=== PATIENT | female | born 1955 | race African-American/Black ===

== ENCOUNTER 2017-05-20 22:31 | Emergency (ER) | payer OTHER ==
[2017-05-20 23:12] VITALS: BP 164/93; PULSE 97; TEMP 98.2; BMI 38.0
[2017-05-20 23:35] LABS: URINE APPEARANCE CLOUDY; URINE BILIRUBIN NEGATIVE (NEGATIVE); URINE BLOOD 1+ (NEGATIVE); URINE COLOR YELLOW; URINE GLUCOSE (UA) NEGATIVE (NEGATIVE); URINE KETONE NEGATIVE (NEGATIVE); URINE NITRITE NEGATIVE (NEGATIVE); URINE UROBILINOGEN NEGATIVE mg/dL (0.2-1.0)
[2017-05-20 23:39] LABS: URINE LEUK ESTERASE 3+ (NEGATIVE); URINE PROTEIN 1+ (NEGATIVE)
[2017-05-20 23:40] LABS: EPI CELLS RARE /HPF (FEW); URINE BACTERIA RARE /hpf (NONE SEEN); URINE MUCUS FEW
--- NOTE | 2017-05-21 00:02 | PDOC ---
History of Present Illness - General Chief Complaint: Urinary Problem Stated Complaint: BURN Time Seen by Provider: 05/20/17 23:59 History Source: Patient Exam Limitations: No Limitations - History of Present Illness Travel History: No Initial Comments: 05/21/17 00:06 Best Contact: Pmhx: N/A Pshx:C sections x2 (27 and 23years ago) Allergies: NKDA 62-year-old female presents to the emergency department complaining of burning upon urination, dysuria, hesitancy, increased frequency and urgency since last evening without fever, chills, nausea/vomiting, abdominal discomfort, flank pains. Patient states she's had previous UTIs which feels the same. Past History - Past Medical History Allergies/Adverse Reactions: Allergies Allergy/AdvReac Type Severity Reaction Status Date / Time No Known Allergies Allergy Verified 05/20/17 23:09 Home Medications: Ambulatory Orders Atenolol [Tenormin -] 50 mg PO DAILY 05/20/17 Furosemide 20 mg PO ASDIR 05/20/17 Sulfamethoxazole/Trimethoprim [Bactrim Ds -] 1 tab PO BID #14 tablet 05/21/17 COPD: No HTN: Yes Hypercholesterolemia: Yes - Surgical History GI Surgery: Yes (Lap band) - Suicide/Smoking/Psychosocial Hx Smoking History: Never smoked Have you smoked in the past 12 months: No Information on smoking cessation initiated: No Hx Alcohol Use: No Drug/Substance Use Hx: No Substance Use Type: None Review of Systems - Review of Systems Able to Perform ROS?: Yes Comments:: 05/21/17 00:02 CONSTITUTIONAL: Absent: fever, chills, diaphoresis, generalized weakness, malaise, loss of appetite HEENT: Absent: rhinorrhea, nasal congestion, throat pain, throat swelling, difficulty swallowing, mouth swelling, ear pain, eye pain, visual Changes CARDIOVASCULAR: Absent: chest pain, loss of consciousness, palpitations, irregular heart rate, peripheral edema RESPIRATORY: Absent: cough, shortness of breath, dyspnea with exertion, orthopnea, wheezing, stridor, hemoptysis GASTROINTESTINAL: Absent: abdominal pain, abdominal distension, nausea, vomiting, diarrhea, constipation, melena, hematochezia GENITOURINARY: +dysuria, frequency, urgency, hesitancy Absent: flank pain, genital pain MUSCULOSKELETAL: Absent: myalgia, arthralgia, joint swelling SKIN: Absent: rash, itching, pallor HEMATOLOGIC/IMMUNOLOGIC: Absent: easy bleeding, easy bruising, lymphadenopathy, frequent infections Is the patient limited Malay proficient: No *Physical Exam - Vital Signs Last Vital Signs Temp Pulse Resp BP Pulse Ox 98.2 F 97 H 20 164/93 97 05/20/17 23:10 05/20/17 23:10 05/20/17 23:10 05/20/17 23:10 05/20/17 23:10 - Physical Exam Comments: 05/21/17 00:02 GENERAL: Well developed, well nourished. Awake and alert. No acute distress. HEENT: Normocephalic, atraumatic. PERRLA, EOMI. No conjunctival pallor. Sclera are non- icteric. Moist mucous membranes. Oropharynx is clear. NECK: Supple. Full ROM. No JVD. Carotid pulses 2+ and symmetric, without bruits. No thyromegaly. No lymphadenopathy. CARDIOVASCULAR: Regular rate and rhythm. No murmurs, rubs, or gallops. Distal pulses are 2+ and symmetric. PULMONARY: No evidence of respiratory distress. Lungs clear to auscultation bilaterally. No wheezing, rales or rhonchi. ABDOMINAL: Soft. Non-tender. Non-distended. No rebound or guarding. No organomegaly. Normoactive bowel sounds. MUSCULOSKELETAL Normal range of motion at all joints. No bony deformities or tenderness. No CVA tenderness. EXTREMITIES: No cyanosis. No clubbing. No edema. No calf tenderness. SKIN: Warm and dry. Normal capillary refill. No rashes. No jaundice. NEUROLOGICAL: Alert, awake, appropriate. Cranial nerves 2-12 intact. No deficits to light touch and temperature in face, upper extremities and lower extremities. No motor deficits in the in face, upper extremities and lower extremities. Normoreflexic in the upper and lower extremities. Normal speech. Toes are down- going bilaterally. Gait is normal without ataxia. PSYCHIATRIC: Cooperative. Good eye contact. Appropriate mood and affect. ED Treatment Course - ADDITIONAL ORDERS Additional order review: Laboratory Results 05/20/17 23:25 Urine Color Yellow Urine Appearance Cloudy Urine pH 6.0 Ur Specific [place] 1.017 Urine Protein 1+ H Urine Glucose (UA) Negative Urine Ketones Negative Urine Blood 1+ H Urine Nitrite Negative Urine Bilirubin Negative Urine Urobilinogen Negative Ur Leukocyte Esterase 3+ H Urine WBC (Auto) 329 Urine RBC (Auto) 18 Ur Epithelial Cells Rare Urine Bacteria Rare Urine Mucus Few *DC/Admit/Observation/Transfer Diagnosis at time of Disposition: UTI (urinary tract infection) Qualifiers: Urinary tract infection type: acute cystitis Hematuria presence: with hematuria Qualified Code(s): N30.01 - Acute cystitis with hematuria - Discharge Dispostion Disposition: HOME Condition at time of disposition: Stable Admit: No - Prescriptions Prescriptions: Sulfamethoxazole/Trimethoprim [Bactrim Ds -] 1 tab PO BID #14 tablet - Referrals Referrals: Brennan Delvalle MD [Primary Care Provider] - - Patient Instructions Printed Discharge Instructions: DI for Urinary Tract Infection (UTI) Additional Instructions: Increase fluids Take antibiotics as prescribed until completion Pelvic rest Follow with your physician within 48 hours Return back to the emergency department for severe/persistent or worsening symptoms - Post Discharge Activity
[2017-05-21] MEDS ORDERED: SULFAMETHOXAZOLE/TRIMETHOPRIM 800MG/160MG D.S. TABLET PO ONE (00:04)
[2017-05-21] MEDS ORDERED: SULFAMETHOXAZOLE/TRIMETHOPRIM 800MG/160MG D.S. TABLET ONE (00:08)
--- NOTE | 2017-05-23 09:37 | PDOC ---
Patient Follow-up (Call Back) - Post ED Follow - Up Condition at time of discharge: Stable Disposition at time of original discharge: HOME Reason for Call Back: Abnwl. Microbiology (Patient with positive urine culture on Bactrim susceptible to all organisms.)
== END 2017-05-21 00:30 | disposition home or self-care (01) ==
LOC: JERFT 22:31
DX: N30.01 Acute cystitis with hematuria (principal); I10 Essential (primary) hypertension; E78.00 Pure hypercholesterolemia, unspecified
CPT/HCPCS: 81003; 81015; 87086; 87186; 99281-25

== ENCOUNTER 2017-09-27 22:33 | Emergency (ER) | payer OTHER ==
[2017-09-27 22:47] VITALS: BP 154/84; PULSE 74; TEMP 98.7; BMI 37.8
--- NOTE | 2017-09-27 23:11 | PDOC ---
History of Present Illness - General Chief Complaint: Urinary Problem Stated Complaint: PAIN Time Seen by Provider: 09/27/17 22:45 History Source: Patient, Old Records Exam Limitations: No Limitations - History of Present Illness Travel History: No Initial Comments: 09/27/17 23:04 This 62-year-old woman past medical history of hypertension presents emergency Department with 2 days of dysuria, lower abdominal pain and bilateral flank pain. Patient states she has had similar symptoms before and was diagnosed with urinary tract infection. Patient denies any recent sexual intercourse. She denies fevers, chills, chest pain, shortness of breath, nausea, vomiting, diarrhea, constipation, rectal bleeding, vaginal bleeding. Patient's last bowel movement was this morning which was formed brown stool no bleeding noted. Past History - Past Medical History Allergies/Adverse Reactions: Allergies Allergy/AdvReac Type Severity Reaction Status Date / Time No Known Allergies Allergy Verified 09/27/17 22:47 Home Medications: Ambulatory Orders Atenolol [Tenormin -] 50 mg PO DAILY 05/20/17 Furosemide 20 mg PO ASDIR 05/20/17 Phenazopyridine HCl [Pyridium] 200 mg PO BID #6 tablet 09/28/17 Sulfamethoxazole/Trimethoprim [Bactrim DS -] 1 tab PO BID #14 tablet 09/28/17 COPD: No HTN: Yes Hypercholesterolemia: Yes - Surgical History GI Surgery: Yes (Lap band) - Suicide/Smoking/Psychosocial Hx Smoking History: Never smoked Have you smoked in the past 12 months: No Information on smoking cessation initiated: No Hx Alcohol Use: No Drug/Substance Use Hx: No Substance Use Type: None Review of Systems - Review of Systems Able to Perform ROS?: Yes Is the patient limited Russian proficient: No Constitutional: No: Symptoms Reported HEENTM: No: Symptoms Reported Respiratory: No: Symptoms reported Cardiac (ROS): No: Symptoms Reported ABD/GI: No: Symptoms Reported : Yes: See HPI Musculoskeletal: No: Symptoms Reported Integumentary: No: Symptoms Reported Neurological: No: Symptoms reported Endocrine: No: Symptoms Reported Hematologic/Lymphatic: No: Symptoms Reported *Physical Exam - Vital Signs Last Vital Signs Temp Pulse Resp BP Pulse Ox 98.7 F 74 16 154/84 100 09/27/17 22:38 09/27/17 22:38 09/27/17 22:38 09/27/17 22:38 09/27/17 22:38 - Physical Exam General Appearance: Yes: Appropriately Dressed. No: Apparent Distress HEENT: positive: Normal ENT Inspection Neck: positive: Trachea midline, Supple Respiratory/Chest: positive: Lungs Clear, Normal Breath Sounds. negative: Respiratory Distress, Accessory Muscle Use Cardiovascular: positive: Regular Rhythm, Regular Rate, S1, S2, Edema (dependant ). negative: Murmur Vascular Pulses: Dorsalis-Pedis (R): 2+, Doralis-Pedis (L): 2+ Gastrointestinal/Abdominal: positive: Normal Bowel Sounds, Soft. negative: Tender Musculoskeletal: positive: Normal Inspection. negative: CVA Tenderness Extremity: positive: Normal Inspection Integumentary: positive: Normal Color, Dry, Warm Neurologic: positive: Alert, Normal Response ED Treatment Course - LABORATORY CBC & Chemistry Diagram: 09/27/17 23:15 09/27/17 23:15 Medical Decision Making - Medical Decision Making 09/27/17 23:07 A/P: 62-year-old woman history of hypertension with 2 days of dysuria, suprapubic pain and bilateral flank Abdomen soft nontender nondistended. No CVA tenderness Bilateral dependent pedal edema. Most likely urinary tract infection- ? pyelo Labs, urine, Tylenol 09/28/17 00:30 CBC is unremarkable, BMP is unremarkable. UA notable for 2+ protein, 1+ blood, 3 + leuk esterase. Laboratory testing is consistent with a cystitis. I will treat the patient with Bactrim based on previous microbiology. I'll add Pyridium to help decrease abdominal discomfort during treatment I discussed the physical exam findings, ancillary test results and final diagnoses with the patient. I answered all of the patient's questions. The patient was satisfied with the care received and felt comfortable with the discharge plan and treatment plan. The patient will call their primary care physician within 24 hours to arrange follow-up and will return to the Emergency Department with any new, persistent or worsening symptoms. *DC/Admit/Observation/Transfer Diagnosis at time of Disposition: UTI (urinary tract infection) Qualifiers: Urinary tract infection type: acute cystitis Hematuria presence: without hematuria Qualified Code(s): N30.00 - Acute cystitis without hematuria - Discharge Dispostion Disposition: HOME Condition at time of disposition: Fair Decision to Admit order: No - Prescriptions Prescriptions: Phenazopyridine HCl [Pyridium] 200 mg PO BID #6 tablet Sulfamethoxazole/Trimethoprim [Bactrim DS -] 1 tab PO BID #14 tablet - Referrals Referrals: Brennan Delvalle MD [Primary Care Provider] - - Patient Instructions Additional Instructions: Rest, drink lots of fluids: Teas, water, soups Avoid contact with others until fevers and symptoms resolved Lots of handwashing and good hygiene Continue [id number] medications for symptomatic relief Tylenol or Motrin for fever and pain Continue all of antibiotics until completed Take Pyridium 200mg- 3 times a day for 2 days Followup with private physician in one week for repeat urinalysis/reevaluation Return to emergency department for worsened symptoms, fevers, dehydration - Post Discharge Activity
[2017-09-27 23:34] LABS: BASO % 0.4 % (0-2.0); EOS % 0.8 % (0-4.5); HEMATOCRIT 35.8 % (32.4-45.2); HEMOGLOBIN 11.5 GM/dL (10.7-15.3); LYMPH % 25.4 % (8-40); MCHC 32.1 g/dl (32.0-36.0); MEAN CELL VOLUME 74.7 fl (80-96); MEAN PLT VOLUME 7.8 fl (7.5-11.1); MONO % 8.7 % (3.8-10.2); NEUT % 64.7 % (42.8-82.8); PLATELET COUNT 215 K/MM3 (134-434); RBC 4.79 M/mm3 (3.60-5.2); RDW 16.2 % (11.6-15.6); WHITE BLOOD COUNT 6.9 K/mm3 (4.0-10.0)
[2017-09-27] MEDS ORDERED: KETOROLAC TROMETHAMINE 30 MG/1 ML VIAL IVPUSH ONE (23:55)
[2017-09-27 23:59] LABS: ANION GAP 8 (8-16); BLOOD UREA NITROGEN 22 mg/dL (7-18); CALCIUM 8.4 mg/dL (8.5-10.1); CHLORIDE 104 mmol/L (98-107); CO2 31 mmol/L (21-32); CREATININE 0.9 mg/dL (0.55-1.02); GLUCOSE,RANDOM 133 mg/dL (74-106); POTASSIUM 3.5 mmol/L (3.5-5.1); SODIUM 143 mmol/L (136-145)
[2017-09-28] MEDS ORDERED: KETOROLAC TROMETHAMINE 30 MG/1 ML VIAL ONE (00:07)
--- NOTE | 2017-09-28 00:22 | PDOC ---
*Physical Exam - Vital Signs Last Vital Signs Temp Pulse Resp BP Pulse Ox 98.7 F 74 16 154/84 100 09/27/17 22:38 09/27/17 22:38 09/27/17 22:38 09/27/17 22:38 09/27/17 22:38 ED Treatment Course - LABORATORY CBC & Chemistry Diagram: 09/27/17 23:15 09/27/17 23:15 - ADDITIONAL ORDERS Additional order review: Laboratory Results 09/27/17 23:15 Sodium 143 Potassium 3.5 Chloride 104 Carbon Dioxide 31 Anion Gap 8 BUN 22 H Creatinine 0.9 Creat Clearance w eGFR > 60 Random Glucose 133 H Calcium 8.4 L 09/27/17 23:15 RBC 4.79 MCV 74.7 L MCHC 32.1 RDW 16.2 H MPV 7.8 Neutrophils % 64.7 D Lymphocytes % 25.4 D Monocytes % 8.7 Eosinophils % 0.8 Basophils % 0.4 - Medications Given in the ED: ED Medications Discontinued Medications Generic Name Dose Route Start Last Admin Trade Name Stefan PRN Reason Stop Dose Admin Ketorolac Tromethamine 30 mg 09/27/17 23:55 09/28/17 00:11 Toradol Injection - IVPUSH 09/27/17 23:56 30 mg ONCE ONE Administration Medical Decision Making - Medical Decision Making 09/28/17 00:19 Patient seen and evaluated with the nurse practitioner. I agree with the overall evaluation, assessment, and management with the following summary of visit: 62-year-old female with history of UTI in May presents with UTI symptoms again. Afebrile. Exam as noted. Presentation consistent with cystitis, less consistent with pyelonephritis on exam but is experiencing some flank pain. Labs and urinalysis Urine culture sent Treat with antibiotics, prior sensitivities to bactrim for both staph and klebsiella *DC/Admit/Observation/Transfer Diagnosis at time of Disposition: UTI (urinary tract infection) Qualifiers: Urinary tract infection type: acute cystitis Hematuria presence: without hematuria Qualified Code(s): N30.00 - Acute cystitis without hematuria - Referrals Referrals: Brennan Delvalle MD [Primary Care Provider] - - Patient Instructions - Post Discharge Activity
[2017-09-28 00:25] LABS: URINE APPEARANCE CLOUDY; URINE BILIRUBIN NEGATIVE (<2.0 mg/dL); URINE COLOR YELLOW; URINE GLUCOSE (UA) NEGATIVE (NEGATIVE); URINE KETONE NEGATIVE (NEGATIVE); URINE NITRITE NEGATIVE (NEGATIVE); URINE UROBILINOGEN 4.0 E.U/dl mg/dL (0.2-1.0)
[2017-09-28 00:27] LABS: URINE LEUK ESTERASE 3+ (NEGATIVE); URINE PROTEIN 2+ (NEGATIVE)
[2017-09-28 00:30] LABS: EPI CELLS RARE /HPF (FEW); URINE BACTERIA RARE /hpf (NONE SEEN); URINE MUCUS RARE; YEAST MANY
[2017-09-28] MEDS ORDERED: PHENAZOPYRIDINE HCL 100 MG TABLET (FP) PO ONE (01:22)
[2017-09-28] MEDS ORDERED: SULFAMETHOXAZOLE/TRIMETHOPRIM 800MG/160MG D.S. TABLET PO ONE (01:22)
[2017-09-28] MEDS ORDERED: PHENAZOPYRIDINE HCL 100 MG TABLET (FP) ONE (01:23)
[2017-09-28] MEDS ORDERED: SULFAMETHOXAZOLE/TRIMETHOPRIM 800MG/160MG D.S. TABLET ONE (01:23)
== END 2017-09-28 01:12 | disposition home or self-care (01) ==
LOC: JER 22:33
PROC: 3E0333Z Introduction of Anti-inflammatory into Peripheral Vein, Percutaneous Approach (ICD-10-PCS; principal; 2017-09-27)
DX: N30.00 Acute cystitis without hematuria (principal); B95.8 Unspecified staphylococcus as the cause of diseases classified elsewhere; I10 Essential (primary) hypertension; E78.00 Pure hypercholesterolemia, unspecified
CPT/HCPCS: 36415; 80048; 81003; 81015; 85025; 87086; 87186; 99282-25

== ENCOUNTER 2018-07-28 01:39 | Emergency (ER) | payer SELFPAY, OTHER | END 2018-07-28 04:20 | disposition home or self-care (01) | LOC: JER 01:39 ==

== ENCOUNTER 2020-02-13 10:39 | Inpatient (IN) | payer BC, OTHER ==
[2020-02-13] MEDS ORDERED: SODIUM CHLORIDE 0.9% 500 ML INFUS.BAG IV ONE (11:20)
[2020-02-13] MEDS ORDERED: FAMOTIDINE 20 MG/50 ML IVPB 20 MG/50 ML MG IVPB ONE ×2 (11:20→11:54)
[2020-02-13] MEDS ORDERED: ONDANSETRON 4 MG/2 ML VIAL IVPUSH ONE (11:20)
[2020-02-13] MEDS ORDERED: MAG HYDROX/AL HYDROX/SIMETH 30 ML UNIT-DOSE CUP PO ONE (11:20)
[2020-02-13] MEDS ORDERED: MAG HYDROX/AL HYDROX/SIMETH 30 ML UNIT-DOSE CUP ONE (11:53)
[2020-02-13] MEDS ORDERED: ONDANSETRON 4 MG/2 ML VIAL ONE (11:54)
[2020-02-13 12:23] LABS: BASO % 0.2 % (0-2.0); HEMATOCRIT 37.2 % (32.4-45.2); HEMOGLOBIN 11.9 GM/dL (10.7-15.3); LYMPH % 5.7 % (8-40); MCH 24.4 pg (25.7-33.7); MCHC 31.9 g/dl (32.0-36.0); MEAN CELL VOLUME 76.3 fl (80-96); MEAN PLT VOLUME 8.9 fl (7.5-11.1); MONO % 2.1 % (3.8-10.2); PLATELET COUNT 224 K/MM3 (134-434); RBC 4.87 M/mm3 (3.60-5.2); RDW 16.3 % (11.6-15.6); WHITE BLOOD COUNT 16.6 K/mm3 (4.0-10.0)
[2020-02-13 12:40] LABS: CHLORIDE 98 mmol/L (98-107); SODIUM 134 mmol/L (136-145)
[2020-02-13 12:42] LABS: ALBUMIN 3.1 g/dl (3.4-5.0); ANION GAP 10 MMOL/L (8-16); CALCIUM 8.6 mg/dL (8.5-10.1); CO2 25 mmol/L (21-32); LIPASE 138 U/L (73-393)
[2020-02-13 12:43] LABS: BLOOD UREA NITROGEN 50.6 mg/dL (7-18); GLUCOSE,RANDOM 143 mg/dL (74-106); MAGNESIUM 2.1 mg/dL (1.8-2.4)
[2020-02-13 12:45] LABS: PHOSPHOROUS 3.8 mg/dL (2.5-4.9); SGOT/AST 23 U/L (15-37); SGPT/ALT 16 U/L (13-61)
[2020-02-13 12:46] LABS: CREATININE 3.9 mg/dL (0.55-1.3)
[2020-02-13 12:47] LABS: BILIRUBIN,TOTAL 1.3 mg/dL (0.2-1); TOT PROT 8.3 g/dl (6.4-8.2)
[2020-02-13 12:48] LABS: ALK PHOS 88 U/L (45-117)
[2020-02-13 13:22] LABS: N-TERMINAL BNP 8788.2 pg/ml (5-125)
[2020-02-13 15:06] LABS: ANISOCYTOSIS 1+; MACROCYTOSIS 1+; OVALOCYTE 1+; PLATELET ESTIMATE NORMAL
[2020-02-13] MEDS ORDERED: PIPERACILLIN/TAZOB 3.375 GM 3.375 GM in DEXTROSE 5%-WATER - 50 ML IVPB ONE (15:17)
[2020-02-13] MEDS ORDERED: VANCOMYCIN 1 GM PREMIX - 200 ML IVPB ONE (15:17)
[2020-02-13] MEDS ORDERED: PIPERACILLIN/TAZOB 3.375 GM 3.375 GM/50 ML BAG IVPB ONE (15:32)
[2020-02-13 15:57] LABS: EPI CELLS >36 /uL (0-25.1); HYALINE CASTS 13 /uL (0-3.1); URINE APPEARANCE TURBID; URINE BACTERIA 508 /uL (0-1359); URINE BILIRUBIN NEGATIVE (NEGATIVE); URINE COLOR YELLOW; URINE GLUCOSE (UA) NEGATIVE (NEGATIVE); URINE KETONE TRACE (NEGATIVE); URINE LEUK ESTERASE TRACE (NEGATIVE); URINE NITRITE NEGATIVE (NEGATIVE); URINE PROTEIN 2+ (NEGATIVE); URINE RBC 9 /uL (0-23.9); URINE WBC 88 /uL (0-25.8)
[2020-02-13] MEDS ORDERED: SODIUM CHLORIDE 500 ML IV STA (17:15)
[2020-02-13] MEDS ORDERED: LACTATED RINGERS SOLUTION 1,000 ML/1,000 ML INFUS.BAG IV SCH (18:00)
[2020-02-13] MEDS ORDERED: ACETAMINOPHEN 1000 MG/100 ML BAG IVPB ONE (18:30)
[2020-02-13] MEDS ORDERED: ACETAMINOPHEN INJECTION 100 ML IVPB ONE (18:32)
[2020-02-13 19:11] LABS: VENOUS BASE EXCESS -4.2 mmol/L (-2-2); VENOUS O2 SATURATION 79.3 % (70-80); VENOUS PCO2 39.5 mmHg (38-52); VENOUS PH 7.345 (7.310-7.410)
[2020-02-14] MEDS ORDERED: traZODone HCL 50 MG TABLET (FP) PO ONE (01:29)
[2020-02-14] MEDS ORDERED: HEPARIN NA (PORCINE) 5,000 UNITS/ML 1ML VIAL ONE (09:45)
[2020-02-14] MEDS ORDERED: SODIUM CHLORIDE 500 ML IV STA (10:00)
[2020-02-14] MEDS: LACTATED RINGERS SOLUTION 1,000 ML/1,000 ML INFUS.BAG IV SCH ×2 (10:03→11:23)
[2020-02-14] MEDS: HEPARIN NA (PORCINE) 5,000 UNITS/ML 1ML VIAL SQ SCH ×2 (10:03→21:53)
[2020-02-14 11:46] LABS: MCH 23.9 pg (25.7-33.7); MCHC 31.5 g/dl (32.0-36.0); MEAN CELL VOLUME 75.9 fl (80-96); MEAN PLT VOLUME 8.3 fl (7.5-11.1); PLATELET COUNT 191 K/MM3 (134-434); RBC 4.61 M/mm3 (3.60-5.2); WHITE BLOOD COUNT 13.2 K/mm3 (4.0-10.0)
[2020-02-14 11:47] LABS: ADD RBC MORPHOLOGY YES
[2020-02-14] MEDS ORDERED: ACETAMINOPHEN 325 MG TABLET (FP) ONE (11:47)
[2020-02-14] MEDS: ACETAMINOPHEN 325 MG TABLET (FP) PO PRN ×2 (11:49→21:53)
[2020-02-14 11:53] LABS: CHLORIDE 105 mmol/L (98-107); SODIUM 138 mmol/L (136-145)
[2020-02-14 11:56] LABS: BLOOD UREA NITROGEN 69.2 mg/dL (7-18); CALCIUM 7.6 mg/dL (8.5-10.1)
[2020-02-14 11:57] LABS: ALBUMIN 2.3 g/dl (3.4-5.0); ANION GAP 9 MMOL/L (8-16); CO2 23 mmol/L (21-32); GLUCOSE,RANDOM 142 mg/dL (74-106); MAGNESIUM 2.1 mg/dL (1.8-2.4)
[2020-02-14 11:59] LABS: CHOLESTEROL 127 mg/dL (50-200); CREATININE 3.3 mg/dL (0.55-1.3); SGOT/AST 14 U/L (15-37); SGPT/ALT 14 U/L (13-61)
[2020-02-14 12:00] LABS: LDL CHOLESTEROL (ONLY SJRH) 61 mg/dL (5-100); TRIGLYCERIDES 186 mg/dL (0-150)
[2020-02-14 12:01] LABS: BILIRUBIN,TOTAL 0.7 mg/dL (0.2-1); TOT PROT 6.9 g/dl (6.4-8.2)
[2020-02-14 12:02] LABS: ALK PHOS 79 U/L (45-117); HDL CHOLESTEROL 15 mg/dL (40-60)
[2020-02-14 13:04] LABS: ANISOCYTOSIS 1+
[2020-02-14] MEDS ORDERED: PIPERACILLIN/TAZOBACTAM 2.25 GM VIAL IVPB ONE (18:07)
[2020-02-14] MEDS ORDERED: DEXTROSE 5%-WATER - 50 ML IVPB ONE (18:08)
[2020-02-14 20:26] LABS: CALCIUM 7.6 mg/dL (8.5-10.1)
[2020-02-14 20:27] LABS: BLOOD UREA NITROGEN 69.4 mg/dL (7-18)
[2020-02-14 20:30] LABS: CREATININE 2.5 mg/dL (0.55-1.3)
[2020-02-14] MEDS: PIPERACILLIN/TAZOB 2.25 GM 2.25 GM in DEXTROSE 5%-WATER - 50 ML IVPB SCH (20:59)
[2020-02-15] MEDS ORDERED: PIPERACILLIN/TAZOBACTAM 2.25 GM VIAL IVPB ONE ×3 (02:11→15:47)
[2020-02-15] MEDS ORDERED: DEXTROSE 5%-WATER - 50 ML IVPB ONE ×3 (02:11→15:47)
[2020-02-15] MEDS: PIPERACILLIN/TAZOB 2.25 GM 2.25 GM in DEXTROSE 5%-WATER - 50 ML IVPB SCH ×3 (02:28→17:29)
[2020-02-15] MEDS: LACTATED RINGERS SOLUTION 1,000 ML/1,000 ML INFUS.BAG IV SCH ×3 (05:15→21:25)
[2020-02-15 07:09] LABS: BASO % 0.3 % (0-2.0); HEMATOCRIT 32.8 % (32.4-45.2); HEMOGLOBIN 10.4 GM/dL (10.7-15.3); LYMPH % 12.2 % (8-40); MCH 23.9 pg (25.7-33.7); MCHC 31.6 g/dl (32.0-36.0); MEAN CELL VOLUME 75.5 fl (80-96); MEAN PLT VOLUME 8.6 fl (7.5-11.1); MONO % 4.2 % (3.8-10.2); NEUT % 81.3 % (42.8-82.8); PLATELET COUNT 211 K/MM3 (134-434); RBC 4.35 M/mm3 (3.60-5.2); RDW 15.8 % (11.6-15.6); WHITE BLOOD COUNT 10.4 K/mm3 (4.0-10.0)
[2020-02-15 07:49] LABS: CALCIUM 8.1 mg/dL (8.5-10.1)
[2020-02-15 07:50] LABS: ALBUMIN 2.1 g/dl (3.4-5.0); BLOOD UREA NITROGEN 61.9 mg/dL (7-18); MAGNESIUM 2.6 mg/dL (1.8-2.4)
[2020-02-15 07:52] LABS: CREATININE 1.7 mg/dL (0.55-1.3)
[2020-02-15 07:53] LABS: PHOSPHOROUS 3.6 mg/dL (2.5-4.9)
[2020-02-15 07:54] LABS: TOT PROT 6.3 g/dl (6.4-8.2)
[2020-02-15] MEDS: HEPARIN NA (PORCINE) 5,000 UNITS/ML 1ML VIAL SQ SCH ×2 (09:38→21:23)
[2020-02-15 11:15] LABS: ANISOCYTOSIS 1+; MACROCYTOSIS 0; OVALOCYTE 1+; PLATELET ESTIMATE NORMAL; TOXIC GRANULATION 2+
[2020-02-15] MEDS: ACETAMINOPHEN 325 MG TABLET (FP) PO PRN (21:23)
[2020-02-16] MEDS ORDERED: PIPERACILLIN/TAZOBACTAM 2.25 GM VIAL IVPB ONE ×3 (01:25→17:28)
[2020-02-16] MEDS ORDERED: DEXTROSE 5%-WATER - 50 ML IVPB ONE ×3 (01:26→17:28)
[2020-02-16] MEDS: PIPERACILLIN/TAZOB 2.25 GM 2.25 GM in DEXTROSE 5%-WATER - 50 ML IVPB SCH ×3 (01:31→18:24)
[2020-02-16] MEDS: HEPARIN NA (PORCINE) 5,000 UNITS/ML 1ML VIAL SQ SCH ×2 (12:00→21:12)
[2020-02-16 14:46] LABS: CALCIUM 8.3 mg/dL (8.5-10.1)
[2020-02-16 14:50] LABS: CREATININE 0.8 mg/dL (0.55-1.3)
[2020-02-16 14:52] LABS: BLOOD UREA NITROGEN 24.1 mg/dL (7-18)
[2020-02-16] MEDS: LACTATED RINGERS SOLUTION 1,000 ML/1,000 ML INFUS.BAG IV SCH (14:55)
[2020-02-16 18:07] LABS: MYCOPLASMA PNEUMONIAE,IG G AB <100 U/mL (0-99); MYCOPLASMA PNEUMONIAE,IGM AB <770 U/mL (0-769)
[2020-02-16] MEDS: ACETAMINOPHEN 325 MG TABLET (FP) PO PRN (21:13)
[2020-02-17] MEDS ORDERED: DEXTROSE 5%-WATER - 50 ML IVPB ONE ×3 (02:37→17:19)
[2020-02-17] MEDS ORDERED: PIPERACILLIN/TAZOBACTAM 2.25 GM VIAL IVPB ONE ×3 (02:37→17:19)
[2020-02-17] MEDS: PIPERACILLIN/TAZOB 2.25 GM 2.25 GM in DEXTROSE 5%-WATER - 50 ML IVPB SCH ×3 (02:43→17:27)
[2020-02-17] MEDS: LACTATED RINGERS SOLUTION 1,000 ML/1,000 ML INFUS.BAG IV SCH ×2 (02:44→11:03)
[2020-02-17] MEDS ORDERED: guaiFENesin/D-METHORPHAN HB 10 ML UNIT-DOSE CUPS PO ONE (03:34)
[2020-02-17] MEDS: HEPARIN NA (PORCINE) 5,000 UNITS/ML 1ML VIAL SQ SCH ×2 (10:39→22:56)
[2020-02-17] MEDS: ACETAMINOPHEN 325 MG TABLET (FP) PO PRN ×3 (11:02→23:46)
[2020-02-17] MEDS: guaiFENesin 200 MG/10 ML 10 ML UNIT-DOSE CUPS PO PRN (15:00)
[2020-02-18] MEDS ORDERED: DEXTROSE 5%-WATER - 50 ML IVPB ONE ×3 (02:36→17:19)
[2020-02-18] MEDS ORDERED: PIPERACILLIN/TAZOBACTAM 2.25 GM VIAL IVPB ONE ×3 (02:36→17:19)
[2020-02-18] MEDS: PIPERACILLIN/TAZOB 2.25 GM 2.25 GM in DEXTROSE 5%-WATER - 50 ML IVPB SCH ×3 (02:58→17:38)
[2020-02-18] MEDS ORDERED: LIDOCAINE 5% TOPICAL PATCH TP ONE (03:30)
[2020-02-18] MEDS: ALBUTEROL SO4 2.5/IPRATROPIUM 0.5 INH SOL 3 ML VIAL.NEB. NEB PRN ×2 (08:31→20:35)
[2020-02-18] MEDS: guaiFENesin 200 MG/10 ML 10 ML UNIT-DOSE CUPS PO PRN (09:52)
[2020-02-18] MEDS: POLYETHYLENE GLYCOL 3350 119 GM BTL PO PRN (09:58)
[2020-02-18] MEDS: HEPARIN NA (PORCINE) 5,000 UNITS/ML 1ML VIAL SQ SCH ×2 (09:59→22:20)
[2020-02-18 10:19] LABS: BASO % 0.1 % (0-2.0); EOS % 1.2 % (0-4.5); HEMATOCRIT 35.3 % (32.4-45.2); HEMOGLOBIN 11.3 GM/dL (10.7-15.3); LYMPH % 18.1 % (8-40); MCH 24.2 pg (25.7-33.7); MEAN CELL VOLUME 75.6 fl (80-96); MEAN PLT VOLUME 7.7 fl (7.5-11.1); MONO % 8.3 % (3.8-10.2); NEUT % 72.3 % (42.8-82.8); PLATELET COUNT 227 K/MM3 (134-434); RBC 4.67 M/mm3 (3.60-5.2); WHITE BLOOD COUNT 6.3 K/mm3 (4.0-10.0)
[2020-02-18 10:51] LABS: CALCIUM 8.6 mg/dL (8.5-10.1)
[2020-02-18 10:52] LABS: ALBUMIN 2.4 g/dl (3.4-5.0); BLOOD UREA NITROGEN 10.9 mg/dL (7-18)
[2020-02-18 10:55] LABS: CREATININE 0.7 mg/dL (0.55-1.3)
[2020-02-18 10:57] LABS: BILIRUBIN,TOTAL 0.8 mg/dL (0.2-1); TOT PROT 7.9 g/dl (6.4-8.2)
[2020-02-18 13:00] LABS: ANISOCYTOSIS 0; MACROCYTOSIS 0
[2020-02-18] MEDS ORDERED: LIDOCAINE 5% TOPICAL PATCH TP SCH (14:15)
[2020-02-18] MEDS: amLODIPine BESYLATE 5 MG TABLET (FP) PO SCH (15:15)
[2020-02-18] MEDS ORDERED: LIDOCAINE PATCH REMOVAL MC ONE (15:30)
[2020-02-18] MEDS: ACETAMINOPHEN 325 MG TABLET (FP) PO PRN (16:01)
[2020-02-18] MEDS: LIDOCAINE 5% TOPICAL PATCH TP SCH (22:16)
[2020-02-19] MEDS ORDERED: DEXTROSE 5%-WATER - 50 ML IVPB ONE ×2 (03:26→09:27)
[2020-02-19] MEDS ORDERED: PIPERACILLIN/TAZOBACTAM 2.25 GM VIAL IVPB ONE ×2 (03:26→09:27)
[2020-02-19] MEDS: PIPERACILLIN/TAZOB 2.25 GM 2.25 GM in DEXTROSE 5%-WATER - 50 ML IVPB SCH ×2 (03:29→09:34)
[2020-02-19] MEDS: ACETAMINOPHEN 325 MG TABLET (FP) PO PRN ×2 (09:34→17:36)
[2020-02-19] MEDS: POLYETHYLENE GLYCOL 3350 119 GM BTL PO PRN (09:34)
[2020-02-19] MEDS: amLODIPine BESYLATE 5 MG TABLET (FP) PO SCH (09:34)
[2020-02-19] MEDS: HEPARIN NA (PORCINE) 5,000 UNITS/ML 1ML VIAL SQ SCH ×2 (09:35→21:27)
[2020-02-19] MEDS: LIDOCAINE PATCH REMOVAL MC SCH (09:36)
[2020-02-19] MEDS ORDERED: traMADol HCL 50 MG TABLET PO ONE (17:50)
[2020-02-19] MEDS: LIDOCAINE 5% TOPICAL PATCH TP SCH (21:27)
[2020-02-19] MEDS: ALBUTEROL SO4 2.5/IPRATROPIUM 0.5 INH SOL 3 ML VIAL.NEB. NEB PRN (21:33)
[2020-02-20] MEDS ORDERED: traMADol HCL 50 MG TABLET PO ONE (02:11)
[2020-02-20] MEDS: guaiFENesin 200 MG/10 ML 10 ML UNIT-DOSE CUPS PO PRN (09:56)
[2020-02-20] MEDS: amLODIPine BESYLATE 5 MG TABLET (FP) PO SCH (09:57)
[2020-02-20] MEDS: HEPARIN NA (PORCINE) 5,000 UNITS/ML 1ML VIAL SQ SCH ×2 (09:57→22:15)
[2020-02-20] MEDS: LIDOCAINE PATCH REMOVAL MC SCH (10:01)
[2020-02-20] MEDS ORDERED: traMADol HCL 50 MG TABLET PO PRN (12:10)
[2020-02-20] MEDS: LIDOCAINE 5% TOPICAL PATCH TP SCH (22:15)
[2020-02-21] MEDS: ACETAMINOPHEN 325 MG TABLET (FP) PO PRN ×3 (05:31→21:00)
[2020-02-21] MEDS: guaiFENesin 200 MG/10 ML 10 ML UNIT-DOSE CUPS PO PRN (09:20)
[2020-02-21] MEDS: amLODIPine BESYLATE 5 MG TABLET (FP) PO SCH (09:20)
[2020-02-21] MEDS: LIDOCAINE PATCH REMOVAL MC SCH (09:24)
[2020-02-21] MEDS ORDERED: POTASSIUM CHLORIDE TABS 20 MEQ TABLET.ER (FP) PO ONE (14:03)
[2020-02-21] MEDS ORDERED: FUROSEMIDE 20 MG TABLET (FP) PO ONE (14:03)
[2020-02-21 17:13] LABS: CALCIUM 7.9 mg/dL (8.5-10.1)
[2020-02-21 17:14] LABS: ALBUMIN 2.3 g/dl (3.4-5.0)
[2020-02-21 17:17] LABS: CREATININE 0.7 mg/dL (0.55-1.3)
[2020-02-21 17:19] LABS: BILIRUBIN,TOTAL 0.3 mg/dL (0.2-1); TOT PROT 7.8 g/dl (6.4-8.2)
[2020-02-21 17:20] LABS: BLOOD UREA NITROGEN 13.6 mg/dL (7-18)
[2020-02-21] MEDS: LIDOCAINE 5% TOPICAL PATCH TP SCH (21:01)
[2020-02-21] MEDS: POLYETHYLENE GLYCOL 3350 119 GM BTL PO PRN (21:07)
[2020-02-22 09:05] LABS: BASO % 0.2 % (0-2.0); HEMATOCRIT 34.5 % (32.4-45.2); HEMOGLOBIN 11.1 GM/dL (10.7-15.3); LYMPH % 16.6 % (8-40); MCH 24.2 pg (25.7-33.7); MCHC 32.1 g/dl (32.0-36.0); MEAN CELL VOLUME 75.4 fl (80-96); MEAN PLT VOLUME 7.4 fl (7.5-11.1); NEUT % 76.2 % (42.8-82.8); PLATELET COUNT 422 K/MM3 (134-434); RBC 4.58 M/mm3 (3.60-5.2); RDW 16.4 % (11.6-15.6); WHITE BLOOD COUNT 9.2 K/mm3 (4.0-10.0)
[2020-02-22] MEDS: amLODIPine BESYLATE 5 MG TABLET (FP) PO SCH (09:23)
[2020-02-22] MEDS: LIDOCAINE PATCH REMOVAL MC SCH (09:23)
[2020-02-22 09:32] LABS: ALBUMIN 2.4 g/dl (3.4-5.0); BLOOD UREA NITROGEN 9.9 mg/dL (7-18); CALCIUM 8.3 mg/dL (8.5-10.1)
[2020-02-22 09:35] LABS: CREATININE 0.6 mg/dL (0.55-1.3)
[2020-02-22 09:36] LABS: BILIRUBIN,TOTAL 0.7 mg/dL (0.2-1); TOT PROT 8.3 g/dl (6.4-8.2)
[2020-02-22] MEDS ORDERED: HYDROmorphone HCl 2 MG/ML VIAL IVPUSH PRN (09:47)
[2020-02-22] MEDS: ACETAMINOPHEN 325 MG TABLET (FP) PO PRN (12:00)
[2020-02-22] MEDS: POLYETHYLENE GLYCOL 3350 119 GM BTL PO PRN (12:00)
[2020-02-22] MEDS: ENOXAPARIN NA (PORCINE) 40 MG/0.4 ML DISP.SYRIN SQ SCH (13:39)
[2020-02-22] MEDS: ALBUTEROL SO4 0.083% IH SOL 2.5 MG/3 ML VIAL.NEB. NEB SCH ×2 (14:55→19:27)
[2020-02-22] MEDS: LIDOCAINE 5% TOPICAL PATCH TP SCH (21:15)
[2020-02-22] MEDS ORDERED: PT OWN MED DRAWER 7, Y5N ONE (23:08)
[2020-02-23] MEDS: ACETAMINOPHEN 325 MG TABLET (FP) PO PRN ×3 (01:04→18:12)
[2020-02-23 08:59] LABS: CALCIUM 8.6 mg/dL (8.5-10.1)
[2020-02-23 09:01] LABS: BLOOD UREA NITROGEN 9.7 mg/dL (7-18)
[2020-02-23] MEDS: ALBUTEROL SO4 0.083% IH SOL 2.5 MG/3 ML VIAL.NEB. NEB SCH ×4 (09:01→21:32)
[2020-02-23 09:04] LABS: CREATININE 0.6 mg/dL (0.55-1.3)
[2020-02-23] MEDS: ENOXAPARIN NA (PORCINE) 40 MG/0.4 ML DISP.SYRIN SQ SCH (09:47)
[2020-02-23] MEDS: SENNOSIDES 8.6MG TABLET (FP) PO SCH ×2 (09:47→21:24)
[2020-02-23] MEDS: amLODIPine BESYLATE 5 MG TABLET (FP) PO SCH (09:47)
[2020-02-23] MEDS: LIDOCAINE PATCH REMOVAL MC SCH (09:47)
[2020-02-23] MEDS ORDERED: BISACODYL 10 MG SUPP.RECT PR ONE (17:50)
[2020-02-23] MEDS: MINERAL OIL ENEMA 133 ML ENEMA PR ONE ×2 (21:25→22:05)
[2020-02-23] MEDS: LIDOCAINE 5% TOPICAL PATCH TP SCH (21:25)
[2020-02-23] MEDS ORDERED: FUROSEMIDE 40 MG/4 ML INJECTABLE VIAL IVPUSH ONE (23:39)
[2020-02-23] MEDS ORDERED: HEPARIN NA (PORCINE) 5,000 UNITS/ML 1ML VIAL IVPUSH PRN ×2 (23:52)
[2020-02-24 01:42] LABS: INR 1.13 (0.83-1.09); PROTHROMBIN TIME (PATIENT) 13.6 SEC (9.7-13.0)
[2020-02-24 01:44] LABS: ACTIVATED PTT 29.3 SECONDS (25.2-36.5)
[2020-02-24] MEDS: HEPARIN SOD,PORK IN 0.45% NACL 25,000 UNITS/500 ML INFUS.BAG IVPB SCH (01:48)
[2020-02-24] MEDS: FUROSEMIDE 40 MG/4 ML INJECTABLE VIAL IVPUSH SCH ×2 (06:03→17:52)
[2020-02-24] MEDS: ACETAMINOPHEN 325 MG TABLET (FP) PO PRN ×2 (06:20→17:53)
[2020-02-24] MEDS: ALBUTEROL SO4 0.083% IH SOL 2.5 MG/3 ML VIAL.NEB. NEB SCH ×4 (08:03→20:30)
[2020-02-24 09:23] LABS: BASO % 0.6 % (0-2.0); EOS % 0.8 % (0-4.5); HEMATOCRIT 32.6 % (32.4-45.2); HEMOGLOBIN 10.3 GM/dL (10.7-15.3); LYMPH % 21.8 % (8-40); MCH 23.4 pg (25.7-33.7); MCHC 31.8 g/dl (32.0-36.0); MEAN CELL VOLUME 73.7 fl (80-96); MEAN PLT VOLUME 7.3 fl (7.5-11.1); MONO % 7.8 % (3.8-10.2); PLATELET COUNT 473 K/MM3 (134-434); RBC 4.42 M/mm3 (3.60-5.2); RDW 16.2 % (11.6-15.6); WHITE BLOOD COUNT 6.2 K/mm3 (4.0-10.0)
[2020-02-24 10:16] LABS: ALBUMIN 2.3 g/dl (3.4-5.0); BILIRUBIN,TOTAL 0.5 mg/dL (0.2-1); BLOOD UREA NITROGEN 10.6 mg/dL (7-18); CALCIUM 8.1 mg/dL (8.5-10.1); CREATININE 0.6 mg/dL (0.55-1.3); TOT PROT 7.9 g/dl (6.4-8.2)
[2020-02-24] MEDS: SENNOSIDES 8.6MG TABLET (FP) PO SCH ×2 (10:20→21:30)
[2020-02-24] MEDS: amLODIPine BESYLATE 5 MG TABLET (FP) PO SCH (10:20)
[2020-02-24] MEDS: LIDOCAINE PATCH REMOVAL MC SCH (10:20)
[2020-02-24] MEDS ORDERED: SODIUM PHOSPHATE/NA BIPHOS 133 ML ENEMA RC ONE (14:00)
[2020-02-24 18:29] LABS: BF WBC & OTHER NUCLEATED CELLS 675 /mm3
[2020-02-24 19:37] LABS: BODY FLUID BASOPHIL 1 %; BODY FLUID MONOCYTE 18 %; BODYL FLD EOSINOPHIL 1 %
[2020-02-24] MEDS: LIDOCAINE 5% TOPICAL PATCH TP SCH ×2 (21:30)
[2020-02-24 22:00] LABS: URINE APPEARANCE CLEAR; URINE BILIRUBIN NEGATIVE (NEGATIVE); URINE COLOR YELLOW; URINE GLUCOSE (UA) NEGATIVE (NEGATIVE); URINE KETONE NEGATIVE (NEGATIVE); URINE LEUK ESTERASE NEGATIVE (NEGATIVE); URINE NITRITE NEGATIVE (NEGATIVE); URINE PROTEIN NEGATIVE (NEGATIVE); URINE UROBILINOGEN 0.2 mg/dL (0.2-1.0)
[2020-02-25] MEDS ORDERED: PT OWN MED DRAWER 7, Y5N ONE (00:25)
[2020-02-25] MEDS: HYDROmorphone HCl 2 MG/ML VIAL IVPB PRN ×2 (00:28→22:08)
[2020-02-25] MEDS: HEPARIN SOD,PORK IN 0.45% NACL 25,000 UNITS/500 ML INFUS.BAG IVPB SCH (00:54)
[2020-02-25] MEDS: FUROSEMIDE 40 MG/4 ML INJECTABLE VIAL IVPUSH SCH ×2 (06:03→13:46)
[2020-02-25] MEDS: ALBUTEROL SO4 0.083% IH SOL 2.5 MG/3 ML VIAL.NEB. NEB SCH ×3 (07:30→20:06)
[2020-02-25] MEDS: LIDOCAINE PATCH REMOVAL MC SCH (09:04)
[2020-02-25] MEDS: SENNOSIDES 8.6MG TABLET (FP) PO SCH ×2 (09:04→22:08)
[2020-02-25] MEDS: amLODIPine BESYLATE 5 MG TABLET (FP) PO SCH (09:04)
[2020-02-25 09:27] LABS: HEMATOCRIT 32.9 % (32.4-45.2); HEMOGLOBIN 10.4 GM/dL (10.7-15.3); MCH 23.8 pg (25.7-33.7); MCHC 31.8 g/dl (32.0-36.0); MEAN PLT VOLUME 7.2 fl (7.5-11.1); PLATELET COUNT 475 K/MM3 (134-434); RBC 4.38 M/mm3 (3.60-5.2); RDW 15.9 % (11.6-15.6); WHITE BLOOD COUNT 6.6 K/mm3 (4.0-10.0)
[2020-02-25 10:03] LABS: BLOOD UREA NITROGEN 11.1 mg/dL (7-18); CALCIUM 8.3 mg/dL (8.5-10.1); CREATININE 0.7 mg/dL (0.55-1.3); MAGNESIUM 2.2 mg/dL (1.8-2.4); PHOSPHOROUS 3.1 mg/dL (2.5-4.9)
[2020-02-25] MEDS: KCL 10 MEQ IVPB 10 MEQ/100 ML INFUS.BAG IVPB SCH ×3 (12:19→13:26)
[2020-02-25] MEDS ORDERED: POTASSIUM CHLORIDE ORAL LIQUID 20 MEQ/15 ML PO SCH (13:15)
[2020-02-25 14:13] LABS: CALCIUM 7.9 mg/dL (8.5-10.1)
[2020-02-25 14:14] LABS: BLOOD UREA NITROGEN 12.1 mg/dL (7-18)
[2020-02-25 14:16] LABS: URIC ACID 4.8 mg/dL (2.6-7.2)
[2020-02-25 14:17] LABS: CREATININE 0.8 mg/dL (0.55-1.3)
[2020-02-25] MEDS: LIDOCAINE 5% TOPICAL PATCH TP SCH (22:09)
[2020-02-26] MEDS: ALBUTEROL SO4 0.083% IH SOL 2.5 MG/3 ML VIAL.NEB. NEB SCH ×3 (07:25→20:00)
[2020-02-26] MEDS: amLODIPine BESYLATE 5 MG TABLET (FP) PO SCH (09:04)
[2020-02-26] MEDS: SENNOSIDES 8.6MG TABLET (FP) PO SCH ×2 (09:04→21:37)
[2020-02-26] MEDS: LIDOCAINE PATCH REMOVAL MC SCH (09:05)
[2020-02-26 09:44] LABS: HEMATOCRIT 31.2 % (32.4-45.2); HEMOGLOBIN 9.7 GM/dL (10.7-15.3); MCH 23.2 pg (25.7-33.7); MCHC 30.9 g/dl (32.0-36.0); MEAN CELL VOLUME 74.9 fl (80-96); MEAN PLT VOLUME 7.1 fl (7.5-11.1); PLATELET COUNT 496 K/MM3 (134-434); RBC 4.16 M/mm3 (3.60-5.2); RDW 15.4 % (11.6-15.6); WHITE BLOOD COUNT 4.9 K/mm3 (4.0-10.0)
[2020-02-26] MEDS: FUROSEMIDE 40 MG/4 ML INJECTABLE VIAL IVPUSH SCH (09:57)
[2020-02-26] MEDS ORDERED: FUROSEMIDE 40 MG/4 ML INJECTABLE VIAL IVPUSH SCH (10:00)
[2020-02-26 10:06] LABS: BLOOD UREA NITROGEN 12.5 mg/dL (7-18); CALCIUM 8.5 mg/dL (8.5-10.1)
[2020-02-26 10:10] LABS: CREATININE 0.7 mg/dL (0.55-1.3)
[2020-02-26] MEDS: ENOXAPARIN NA (PORCINE) 40 MG/0.4 ML DISP.SYRIN SQ SCH (11:05)
[2020-02-26 14:07] LABS: BODY FLUID ALBUMIN 2.5 g/dL (Not Estab.)
[2020-02-26] MEDS ORDERED: PT OWN MED DRAWER 7, Y5N ONE (18:20)
[2020-02-26] MEDS: TORSEMIDE 20 MG TABLET (FP) PO SCH (19:06)
[2020-02-26] MEDS: HYDROmorphone HCl 2 MG/ML VIAL IVPB PRN (21:01)
[2020-02-26] MEDS: LIDOCAINE 5% TOPICAL PATCH TP SCH ×2 (21:59→22:10)
[2020-02-27] MEDS: ALBUTEROL SO4 0.083% IH SOL 2.5 MG/3 ML VIAL.NEB. NEB SCH ×3 (08:01→22:36)
[2020-02-27] MEDS ORDERED: PT OWN MED DRAWER 7, Y5N ONE (08:43)
[2020-02-27 09:06] LABS: HEMATOCRIT 34.3 % (32.4-45.2); HEMOGLOBIN 10.6 GM/dL (10.7-15.3); MCH 23.2 pg (25.7-33.7); MCHC 30.9 g/dl (32.0-36.0); MEAN CELL VOLUME 75.1 fl (80-96); PLATELET COUNT 520 K/MM3 (134-434); RBC 4.57 M/mm3 (3.60-5.2); RDW 15.8 % (11.6-15.6); WHITE BLOOD COUNT 5.7 K/mm3 (4.0-10.0)
[2020-02-27] MEDS: amLODIPine BESYLATE 5 MG TABLET (FP) PO SCH (09:11)
[2020-02-27] MEDS: TORSEMIDE 20 MG TABLET (FP) PO SCH (09:11)
[2020-02-27] MEDS: ENOXAPARIN NA (PORCINE) 40 MG/0.4 ML DISP.SYRIN SQ SCH (09:11)
[2020-02-27] MEDS: SENNOSIDES 8.6MG TABLET (FP) PO SCH ×2 (09:11→21:46)
[2020-02-27] MEDS: LIDOCAINE PATCH REMOVAL MC SCH (09:17)
[2020-02-27 09:21] LABS: CALCIUM 8.9 mg/dL (8.5-10.1)
[2020-02-27 09:22] LABS: MAGNESIUM 2.2 mg/dL (1.8-2.4)
[2020-02-27 09:25] LABS: CREATININE 0.8 mg/dL (0.55-1.3); PHOSPHOROUS 3.8 mg/dL (2.5-4.9)
[2020-02-27] MEDS ORDERED: FAMOTIDINE 20 MG TABLET PO ONE (20:08)
[2020-02-27] MEDS: SIMETHICONE 80 MG TAB.CHEW (FP) PO PRN (20:18)
[2020-02-27] MEDS: LIDOCAINE 5% TOPICAL PATCH TP SCH (21:46)
[2020-02-28] MEDS: ALBUTEROL SO4 0.083% IH SOL 2.5 MG/3 ML VIAL.NEB. NEB SCH ×3 (08:00→19:57)
[2020-02-28 08:42] LABS: HEMATOCRIT 30.9 % (32.4-45.2); MCH 23.8 pg (25.7-33.7); MCHC 32.3 g/dl (32.0-36.0); MEAN CELL VOLUME 73.7 fl (80-96); MEAN PLT VOLUME 7.1 fl (7.5-11.1); PLATELET COUNT 509 K/MM3 (134-434); RBC 4.19 M/mm3 (3.60-5.2); RDW 15.7 % (11.6-15.6); WHITE BLOOD COUNT 4.4 K/mm3 (4.0-10.0)
[2020-02-28] MEDS ORDERED: PT OWN MED DRAWER 7, Y5N ONE (09:57)
[2020-02-28] MEDS: ENOXAPARIN NA (PORCINE) 40 MG/0.4 ML DISP.SYRIN SQ SCH (10:37)
[2020-02-28] MEDS: LIDOCAINE PATCH REMOVAL MC SCH (10:39)
[2020-02-28] MEDS: TORSEMIDE 20 MG TABLET (FP) PO SCH (10:40)
[2020-02-28] MEDS: amLODIPine BESYLATE 5 MG TABLET (FP) PO SCH (10:40)
[2020-02-28] MEDS: SENNOSIDES 8.6MG TABLET (FP) PO SCH ×2 (10:40→21:25)
[2020-02-28] MEDS: ACETAMINOPHEN 325 MG TABLET (FP) PO PRN ×2 (13:59→21:26)
[2020-02-28] MEDS: SIMETHICONE 80 MG TAB.CHEW (FP) PO PRN ×2 (13:59→21:29)
[2020-02-28] MEDS: LIDOCAINE 5% TOPICAL PATCH TP SCH (21:35)
[2020-02-28] MEDS: METHYL SALICYLATE/MENTHOL OINT 30 GM TUBE TP SCH (23:20)
[2020-02-29] MEDS: ALBUTEROL SO4 0.083% IH SOL 2.5 MG/3 ML VIAL.NEB. NEB SCH ×3 (07:30→19:47)
[2020-02-29] MEDS ORDERED: PT OWN MED DRAWER 7, Y5N ONE (09:02)
[2020-02-29] MEDS: TORSEMIDE 20 MG TABLET (FP) PO SCH (09:09)
[2020-02-29] MEDS: SENNOSIDES 8.6MG TABLET (FP) PO SCH ×2 (09:09→21:44)
[2020-02-29] MEDS: amLODIPine BESYLATE 5 MG TABLET (FP) PO SCH (09:09)
[2020-02-29] MEDS: ENOXAPARIN NA (PORCINE) 40 MG/0.4 ML DISP.SYRIN SQ SCH (09:09)
[2020-02-29 09:11] LABS: HEMATOCRIT 30.8 % (32.4-45.2); HEMOGLOBIN 9.9 GM/dL (10.7-15.3); MCH 23.9 pg (25.7-33.7); MCHC 32.1 g/dl (32.0-36.0); MEAN CELL VOLUME 74.3 fl (80-96); MEAN PLT VOLUME 7.2 fl (7.5-11.1); PLATELET COUNT 492 K/MM3 (134-434); RBC 4.14 M/mm3 (3.60-5.2); RDW 15.7 % (11.6-15.6)
[2020-02-29] MEDS: LIDOCAINE PATCH REMOVAL MC SCH (09:15)
[2020-02-29] MEDS: METHYL SALICYLATE/MENTHOL OINT 30 GM TUBE TP SCH ×2 (09:15→21:44)
[2020-02-29 19:15] LABS: URINE APPEARANCE CLOUDY; URINE BILIRUBIN NEGATIVE (NEGATIVE); URINE COLOR YELLOW; URINE GLUCOSE (UA) NEGATIVE (NEGATIVE); URINE KETONE NEGATIVE (NEGATIVE); URINE LEUK ESTERASE NEGATIVE (NEGATIVE); URINE NITRITE NEGATIVE (NEGATIVE); URINE PROTEIN NEGATIVE (NEGATIVE); URINE UROBILINOGEN 0.2 mg/dL (0.2-1.0)
[2020-02-29] MEDS: ACETAMINOPHEN 325 MG TABLET (FP) PO PRN (20:18)
[2020-02-29] MEDS: SIMETHICONE 80 MG TAB.CHEW (FP) PO PRN (20:22)
[2020-02-29] MEDS: LIDOCAINE 5% TOPICAL PATCH TP SCH (21:45)
[2020-03-01] MEDS: ALBUTEROL SO4 0.083% IH SOL 2.5 MG/3 ML VIAL.NEB. NEB SCH ×3 (08:17→21:30)
[2020-03-01 09:36] LABS: BLOOD UREA NITROGEN 16.2 mg/dL (7-18); CALCIUM 8.9 mg/dL (8.5-10.1); MAGNESIUM 2.1 mg/dL (1.8-2.4)
[2020-03-01] MEDS: amLODIPine BESYLATE 5 MG TABLET (FP) PO SCH (09:39)
[2020-03-01] MEDS: METHYL SALICYLATE/MENTHOL OINT 30 GM TUBE TP SCH ×2 (09:39→22:05)
[2020-03-01] MEDS: ENOXAPARIN NA (PORCINE) 40 MG/0.4 ML DISP.SYRIN SQ SCH (09:39)
[2020-03-01] MEDS: TORSEMIDE 20 MG TABLET (FP) PO SCH (09:39)
[2020-03-01] MEDS: SENNOSIDES 8.6MG TABLET (FP) PO SCH ×2 (09:39→21:51)
[2020-03-01 09:40] LABS: CREATININE 0.8 mg/dL (0.55-1.3); PHOSPHOROUS 3.6 mg/dL (2.5-4.9)
[2020-03-01] MEDS: LIDOCAINE PATCH REMOVAL MC SCH (09:40)
[2020-03-01] MEDS ORDERED: POTASSIUM CHLORIDE TABS 20 MEQ TABLET.ER (FP) PO ONE (11:15)
[2020-03-01] MEDS ORDERED: DEXTROSE 5%-WATER 100 ML IVPB ONE (15:04)
[2020-03-01] MEDS: CEFTRIAXONE 2 GM in DEXTROSE 5%-WATER 2 GM/100 ML BAG IVPB SCH (15:07)
[2020-03-01] MEDS: SIMETHICONE 80 MG TAB.CHEW (FP) PO PRN (15:33)
[2020-03-01] MEDS: LIDOCAINE 5% TOPICAL PATCH TP SCH (21:52)
[2020-03-01] MEDS: ACETAMINOPHEN 325 MG TABLET (FP) PO PRN (22:06)
[2020-03-02] MEDS: traZODone HCL 50 MG TABLET (FP) PO PRN ×2 (01:15→21:23)
[2020-03-02] MEDS: ALBUTEROL SO4 0.083% IH SOL 2.5 MG/3 ML VIAL.NEB. NEB SCH (07:30)
[2020-03-02] MEDS ORDERED: DEXTROSE 5%-WATER 100 ML IVPB ONE (09:03)
[2020-03-02] MEDS: CEFTRIAXONE 2 GM in DEXTROSE 5%-WATER 2 GM/100 ML BAG IVPB SCH (09:32)
[2020-03-02] MEDS: ENOXAPARIN NA (PORCINE) 40 MG/0.4 ML DISP.SYRIN SQ SCH (09:32)
[2020-03-02] MEDS: SENNOSIDES 8.6MG TABLET (FP) PO SCH ×2 (09:33→21:12)
[2020-03-02] MEDS: TORSEMIDE 20 MG TABLET (FP) PO SCH (09:33)
[2020-03-02] MEDS: amLODIPine BESYLATE 5 MG TABLET (FP) PO SCH (09:33)
[2020-03-02] MEDS: METHYL SALICYLATE/MENTHOL OINT 30 GM TUBE TP SCH ×2 (09:33→21:28)
[2020-03-02] MEDS: LIDOCAINE PATCH REMOVAL MC SCH (09:36)
[2020-03-02 10:40] LABS: CREATININE 0.8 mg/dL (0.55-1.3)
[2020-03-02 10:44] LABS: BLOOD UREA NITROGEN 14.2 mg/dL (7-18); MAGNESIUM 2.1 mg/dL (1.8-2.4)
[2020-03-02 10:48] LABS: PHOSPHOROUS 3.5 mg/dL (2.5-4.9)
[2020-03-02] MEDS: SIMETHICONE 80 MG TAB.CHEW (FP) PO PRN (16:45)
[2020-03-02] MEDS: LIDOCAINE 5% TOPICAL PATCH TP SCH (21:28)
[2020-03-03 08:34] LABS: BLOOD UREA NITROGEN 12.6 mg/dL (7-18); CALCIUM 8.9 mg/dL (8.5-10.1)
[2020-03-03 08:37] LABS: CREATININE 0.7 mg/dL (0.55-1.3)
[2020-03-03] MEDS ORDERED: DEXTROSE 5%-WATER 100 ML IVPB ONE (11:27)
[2020-03-03] MEDS: TORSEMIDE 20 MG TABLET (FP) PO SCH (11:47)
[2020-03-03] MEDS: ENOXAPARIN NA (PORCINE) 40 MG/0.4 ML DISP.SYRIN SQ SCH (11:49)
[2020-03-03] MEDS: amLODIPine BESYLATE 5 MG TABLET (FP) PO SCH (11:49)
[2020-03-03] MEDS: CEFTRIAXONE 2 GM in DEXTROSE 5%-WATER 2 GM/100 ML BAG IVPB SCH (11:50)
[2020-03-03] MEDS: SENNOSIDES 8.6MG TABLET (FP) PO SCH ×2 (11:50→21:46)
[2020-03-03] MEDS: ALBUTEROL SO4 0.083% IH SOL 2.5 MG/3 ML VIAL.NEB. NEB SCH ×2 (13:46→20:11)
[2020-03-03] MEDS: LIDOCAINE PATCH REMOVAL MC SCH (17:28)
[2020-03-03] MEDS: METHYL SALICYLATE/MENTHOL OINT 30 GM TUBE TP SCH ×2 (17:28→21:46)
[2020-03-03] MEDS: LIDOCAINE 5% TOPICAL PATCH TP SCH (21:47)
[2020-03-03] MEDS ORDERED: ACETAMINOPHEN 1000 MG/100 ML BAG IVPB ONE (21:54)
[2020-03-03] MEDS: traZODone HCL 50 MG TABLET (FP) PO PRN (22:03)
[2020-03-03] MEDS: SIMETHICONE 80 MG TAB.CHEW (FP) PO PRN (22:13)
[2020-03-04] MEDS: ALBUTEROL SO4 0.083% IH SOL 2.5 MG/3 ML VIAL.NEB. NEB SCH ×3 (08:05→20:42)
[2020-03-04 08:27] LABS: CALCIUM 8.5 mg/dL (8.5-10.1)
[2020-03-04 08:28] LABS: BLOOD UREA NITROGEN 13.6 mg/dL (7-18); MAGNESIUM 2.1 mg/dL (1.8-2.4)
[2020-03-04 08:31] LABS: CREATININE 0.7 mg/dL (0.55-1.3); PHOSPHOROUS 4.4 mg/dL (2.5-4.9)
[2020-03-04] MEDS ORDERED: PT OWN MED DRAWER 7, Y5N ONE (10:28)
[2020-03-04] MEDS ORDERED: DEXTROSE 5%-WATER 100 ML IVPB ONE (10:29)
[2020-03-04] MEDS: LIDOCAINE PATCH REMOVAL MC SCH (10:31)
[2020-03-04] MEDS: TORSEMIDE 20 MG TABLET (FP) PO SCH (10:31)
[2020-03-04] MEDS: CEFTRIAXONE 2 GM in DEXTROSE 5%-WATER 2 GM/100 ML BAG IVPB SCH (10:31)
[2020-03-04] MEDS: amLODIPine BESYLATE 5 MG TABLET (FP) PO SCH (10:31)
[2020-03-04] MEDS: ACETAMINOPHEN 325 MG TABLET (FP) PO PRN (10:32)
[2020-03-04] MEDS: guaiFENesin 200 MG/10 ML 10 ML UNIT-DOSE CUPS PO PRN (10:32)
[2020-03-04] MEDS: SENNOSIDES 8.6MG TABLET (FP) PO SCH ×2 (10:32→21:39)
[2020-03-04] MEDS: METHYL SALICYLATE/MENTHOL OINT 30 GM TUBE TP SCH ×2 (10:34→21:39)
[2020-03-04] MEDS ORDERED: SODIUM CHLORIDE NASAL SPRAY 44 ML BOTTLE NS PRN (14:56)
[2020-03-04] MEDS: LIDOCAINE 5% TOPICAL PATCH TP SCH (21:39)
[2020-03-04] MEDS ORDERED: diphenhydrAMINE HCL 25 MG CAPSULE (FP) PO ONE (23:55)
[2020-03-05] MEDS: SIMETHICONE 80 MG TAB.CHEW (FP) PO PRN (00:13)
[2020-03-05] MEDS: ALBUTEROL SO4 0.083% IH SOL 2.5 MG/3 ML VIAL.NEB. NEB SCH ×3 (07:55→21:13)
[2020-03-05] MEDS ORDERED: DEXTROSE 5%-WATER 100 ML IVPB ONE (10:03)
[2020-03-05] MEDS: METHYL SALICYLATE/MENTHOL OINT 30 GM TUBE TP SCH ×2 (10:11→21:27)
[2020-03-05] MEDS: SENNOSIDES 8.6MG TABLET (FP) PO SCH ×2 (10:12→21:23)
[2020-03-05] MEDS: amLODIPine BESYLATE 5 MG TABLET (FP) PO SCH (10:12)
[2020-03-05] MEDS: TORSEMIDE 20 MG TABLET (FP) PO SCH (10:12)
[2020-03-05] MEDS: CEFTRIAXONE 2 GM in DEXTROSE 5%-WATER 2 GM/100 ML BAG IVPB SCH (10:12)
[2020-03-05] MEDS: LIDOCAINE PATCH REMOVAL MC SCH (10:13)
[2020-03-05] MEDS: traZODone HCL 50 MG TABLET (FP) PO PRN (21:25)
[2020-03-05] MEDS: LIDOCAINE 5% TOPICAL PATCH TP SCH (21:25)
[2020-03-06] MEDS: ALBUTEROL SO4 0.083% IH SOL 2.5 MG/3 ML VIAL.NEB. NEB SCH ×3 (08:50→20:15)
[2020-03-06] MEDS ORDERED: PT OWN MED DRAWER 7, Y5N ONE (09:51)
[2020-03-06] MEDS ORDERED: DEXTROSE 5%-WATER 100 ML IVPB ONE (09:52)
[2020-03-06] MEDS: METHYL SALICYLATE/MENTHOL OINT 30 GM TUBE TP SCH ×2 (09:54→21:58)
[2020-03-06] MEDS: SENNOSIDES 8.6MG TABLET (FP) PO SCH ×2 (09:54→21:59)
[2020-03-06] MEDS: guaiFENesin 200 MG/10 ML 10 ML UNIT-DOSE CUPS PO PRN (09:54)
[2020-03-06] MEDS: CEFTRIAXONE 2 GM in DEXTROSE 5%-WATER 2 GM/100 ML BAG IVPB SCH (09:54)
[2020-03-06] MEDS: amLODIPine BESYLATE 5 MG TABLET (FP) PO SCH (09:54)
[2020-03-06] MEDS: TORSEMIDE 20 MG TABLET (FP) PO SCH (09:54)
[2020-03-06] MEDS: LIDOCAINE PATCH REMOVAL MC SCH (09:55)
[2020-03-06] MEDS: ACETAMINOPHEN 325 MG TABLET (FP) PO PRN (10:35)
[2020-03-06] MEDS: SIMETHICONE 80 MG TAB.CHEW (FP) PO PRN (15:56)
[2020-03-06] MEDS ORDERED: diphenhydrAMINE HCL 25 MG CAPSULE (FP) PO PRN (18:18)
[2020-03-06] MEDS: LIDOCAINE 5% TOPICAL PATCH TP SCH (21:58)
[2020-03-07] MEDS: ACETAMINOPHEN 325 MG TABLET (FP) PO PRN (04:33)
[2020-03-07] MEDS: SIMETHICONE 80 MG TAB.CHEW (FP) PO PRN (04:39)
[2020-03-07] MEDS: ALBUTEROL SO4 0.083% IH SOL 2.5 MG/3 ML VIAL.NEB. NEB SCH ×2 (08:00→16:20)
[2020-03-07] MEDS ORDERED: DEXTROSE 5%-WATER 100 ML IVPB ONE (09:34)
[2020-03-07] MEDS: amLODIPine BESYLATE 5 MG TABLET (FP) PO SCH (10:57)
[2020-03-07] MEDS: SENNOSIDES 8.6MG TABLET (FP) PO SCH (10:58)
[2020-03-07] MEDS: CEFTRIAXONE 2 GM in DEXTROSE 5%-WATER 2 GM/100 ML BAG IVPB SCH (10:59)
[2020-03-07] MEDS: METHYL SALICYLATE/MENTHOL OINT 30 GM TUBE TP SCH (10:59)
[2020-03-07] MEDS: TORSEMIDE 20 MG TABLET (FP) PO SCH (10:59)
[2020-03-07] MEDS: LIDOCAINE PATCH REMOVAL MC SCH (11:03)
[2020-03-07 14:11] VITALS: BMI 33.7
[2020-03-07 15:25] VITALS: BP 114/69; PULSE 101; TEMP 99.2
== END 2020-03-07 19:04 | disposition home health service (06) | DRG 682 ==
LOC: JER 10:39 → JERBED 11:19 → JICU 02-14 15:01 → J5S 02-17 19:09 → J8W 03-01 16:13
PROVIDERS: ADMIT Internal Medicine; ATTEND Internal Medicine
PROC: 0W9B30Z Drainage of Left Pleural Cavity with Drainage Device, Percutaneous Approach (ICD-10-PCS; principal; 2020-02-24)
PROC: 02HV33Z Insertion of Infusion Device into Superior Vena Cava, Percutaneous Approach (ICD-10-PCS; 2020-03-07)
PROC: B518ZZA Fluoroscopy of Superior Vena Cava, Guidance (ICD-10-PCS; 2020-03-07)
DX: N17.9 Acute kidney failure, unspecified (principal); J18.9 Pneumonia, unspecified organism; E87.1 Hypo-osmolality and hyponatremia; J90 Pleural effusion, not elsewhere classified; I10 Essential (primary) hypertension; E78.5 Hyperlipidemia, unspecified; E66.9 Obesity, unspecified; Z68.36 Body mass index [BMI] 36.0-36.9, adult; R80.9 Proteinuria, unspecified; I95.9 Hypotension, unspecified; D72.829 Elevated white blood cell count, unspecified; D64.9 Anemia, unspecified; I73.9 Peripheral vascular disease, unspecified
CPT/HCPCS: 32557; 36415; 36569; 71045-TC-FY; 71046-TC-FY; 71250-TC; 71275-TC; 72100-TC-FY; 73502-TC-LT-FY; 73502-TC-RT-FY; 74176-TC; 76098-TC-FY; 76775-TC; 76942-TC; 77001-TC-FY; 80048; 80053; 80061; 81003; 82042; 82150; 82272; 82378; 82436; 82465; 82550; 82565; 82803; 82945; 83036; 83615; 83690; 83721; 83735; 83880; 83930; 83935; 83986; 84100; 84133; 84156; 84157; 84300; 84443; 84478; 84484; 84550; 85025; 85027; 85610; 85730; 86738; 87040; 87070; 87075; 87086; 87102; 87116; 87186; 87205; 87206; 87210; 87899; 88108; 88305-TC; 93005; 93010; 93306-TC; 94010; 94640; 94660; 94761; 97116-GP; 97161-GP; 99291; C1729; C1751; C1769; C9803; J0131; J1644; Q9967; U0003

== ENCOUNTER 2020-08-30 08:54 | Inpatient (IN) | payer BC ==
[2020-08-30] MEDS ORDERED: ACETAMINOPHEN 1000 MG/100 ML VIAL (NON FORMULARY) IVPB ONE (10:01)
[2020-08-30] MEDS ORDERED: FAMOTIDINE 20 MG/50 ML IVPB 20 MG/50 ML MG IVPB ONE ×2 (10:01→10:12)
[2020-08-30] MEDS ORDERED: SODIUM CHLORIDE 1,000 ML IV STA ×2 (10:01→16:24)
[2020-08-30] MEDS ORDERED: ACETAMINOPHEN INJECTION 100 ML IVPB ONE (10:12)
[2020-08-30 10:40] LABS: BASO % 0.1 % (0-2.0); EOS % 0.3 % (0-4.5); HEMATOCRIT 33.4 % (32.4-45.2); HEMOGLOBIN 10.6 GM/dL (10.7-15.3); LYMPH % 22.2 % (8-40); MCH 23.3 pg (25.7-33.7); MCHC 31.6 g/dl (32.0-36.0); MEAN CELL VOLUME 73.7 fl (80-96); MEAN PLT VOLUME 8.1 fl (7.5-11.1); NEUT % 73.4 % (42.8-82.8); PLATELET COUNT 230 10^3/uL (134-434); RBC 4.53 M/mm3 (3.60-5.2); RDW 18.9 % (11.6-15.6); WHITE BLOOD COUNT 11.9 K/mm3 (4.0-10.0)
[2020-08-30 10:46] LABS: URINE APPEARANCE CLEAR; URINE BILIRUBIN NEGATIVE (NEGATIVE); URINE COLOR YELLOW; URINE GLUCOSE (UA) NEGATIVE (NEGATIVE); URINE KETONE NEGATIVE (NEGATIVE); URINE LEUK ESTERASE NEGATIVE (NEGATIVE); URINE NITRITE NEGATIVE (NEGATIVE); URINE PROTEIN NEGATIVE (NEGATIVE); URINE UROBILINOGEN 0.2 mg/dL (0.2-1.0)
[2020-08-30 10:58] LABS: ALBUMIN 3.2 g/dl (3.4-5.0); BLOOD UREA NITROGEN 13.2 mg/dL (7-18); CALCIUM 8.9 mg/dL (8.5-10.1)
[2020-08-30 11:01] LABS: CREATININE 0.8 mg/dL (0.55-1.3)
[2020-08-30 11:03] LABS: BILIRUBIN,TOTAL 0.9 mg/dL (0.2-1); TOT PROT 9.1 g/dl (6.4-8.2)
[2020-08-30] MEDS ORDERED: PIPERACILLIN/TAZOB 3.375 GM 3.375 GM in DEXTROSE 5%-WATER - 50 ML IVPB ONE (16:24)
[2020-08-30] MEDS ORDERED: PIPERACILLIN/TAZOB 3.375 GM 3.375 GM/50 ML BAG IVPB ONE (16:40)
[2020-08-30] MEDS ORDERED: morphine CARPU-JECT 4 MG/1 ML DISP.SYRIN IVPUSH ONE (19:03)
[2020-08-30] MEDS ORDERED: morphine SULFATE 4 MG/ML VIAL ONE (19:28)
[2020-08-30 20:02] LABS: INR 1.18 (0.83-1.09); PROTHROMBIN TIME (PATIENT) 14.4 SEC (9.7-13.0)
[2020-08-30] MEDS: DEXTROSE 5%-NORMAL SALINE 1,000 ML IV SCH (21:06)
[2020-08-31 00:32] VITALS: BMI 30.5
[2020-08-31] MEDS: DEXTROSE 5%-NORMAL SALINE 1,000 ML IV SCH ×2 (06:18→21:43)
[2020-08-31] MEDS ORDERED: PIPERACILLIN/TAZOB 3.375 GM 3.375 GM in DEXTROSE 5%-WATER - 50 ML IVPB ONE (06:34)
[2020-08-31 07:36] LABS: BASO % 0.4 % (0-2.0); EOS % 1.1 % (0-4.5); LYMPH % 19.7 % (8-40); MCH 23.6 pg (25.7-33.7); MCHC 32.2 g/dl (32.0-36.0); MEAN CELL VOLUME 73.1 fl (80-96); MEAN PLT VOLUME 7.5 fl (7.5-11.1); MONO % 4.8 % (3.8-10.2); PLATELET COUNT 217 10^3/uL (134-434); RBC 4.24 M/mm3 (3.60-5.2); RDW 18.5 % (11.6-15.6); WHITE BLOOD COUNT 8.2 K/mm3 (4.0-10.0)
[2020-08-31 07:44] LABS: INR 1.17 (0.83-1.09); PROTHROMBIN TIME (PATIENT) 14.3 SEC (9.7-13.0)
[2020-08-31 07:46] LABS: ACTIVATED PTT 26.4 SECONDS (25.2-36.5)
[2020-08-31 08:03] LABS: CALCIUM 8.3 mg/dL (8.5-10.1)
[2020-08-31 08:04] LABS: ALBUMIN 2.8 g/dl (3.4-5.0); BLOOD UREA NITROGEN 8.7 mg/dL (7-18); MAGNESIUM 2.2 mg/dL (1.8-2.4)
[2020-08-31 08:06] LABS: CREATININE 0.7 mg/dL (0.55-1.3)
[2020-08-31 08:08] LABS: BILIRUBIN,TOTAL 0.7 mg/dL (0.2-1); TOT PROT 8.3 g/dl (6.4-8.2)
[2020-08-31] MEDS ORDERED: PIPERACILLIN/TAZOBACTAM 3.375 GM VIAL IVPB ONE ×2 (08:16→16:47)
[2020-08-31] MEDS ORDERED: DEXTROSE 5%-WATER - 50 ML IVPB ONE ×2 (08:17→16:47)
[2020-08-31] MEDS: MORPHINE SULFATE 2 MG/ML VIAL IVPUSH PRN ×2 (10:34→16:49)
[2020-08-31] MEDS: PANTOPRAZOLE SODIUM 40 MG VIAL IVPUSH SCH (12:36)
[2020-08-31] MEDS ORDERED: PIPERACILLIN/TAZOB 3.375 GM 3.375 GM in DEXTROSE 5%-WATER - 50 ML IVPB SCH (14:00)
[2020-08-31] MEDS: PIPERACILLIN/TAZOB 3.375 GM 3.375 GM in DEXTROSE 5%-WATER - 50 ML IVPB SCH (17:01)
[2020-09-01] MEDS ORDERED: PIPERACILLIN/TAZOBACTAM 3.375 GM VIAL IVPB ONE ×3 (01:40→17:17)
[2020-09-01] MEDS ORDERED: DEXTROSE 5%-WATER - 50 ML IVPB ONE ×3 (01:42→17:18)
[2020-09-01] MEDS: PIPERACILLIN/TAZOB 3.375 GM 3.375 GM in DEXTROSE 5%-WATER - 50 ML IVPB SCH ×3 (01:47→17:20)
[2020-09-01 07:48] LABS: BASO % 0.3 % (0-2.0); EOS % 3.5 % (0-4.5); HEMATOCRIT 29.1 % (32.4-45.2); HEMOGLOBIN 9.1 GM/dL (10.7-15.3); LYMPH % 25.8 % (8-40); MCH 23.5 pg (25.7-33.7); MCHC 31.2 g/dl (32.0-36.0); MEAN CELL VOLUME 75.1 fl (80-96); MEAN PLT VOLUME 7.6 fl (7.5-11.1); MONO % 8.7 % (3.8-10.2); NEUT % 61.7 % (42.8-82.8); PLATELET COUNT 188 10^3/uL (134-434); RBC 3.87 M/mm3 (3.60-5.2); RDW 18.9 % (11.6-15.6); WHITE BLOOD COUNT 4.3 K/mm3 (4.0-10.0)
[2020-09-01 08:21] LABS: ALBUMIN 2.3 g/dl (3.4-5.0); BLOOD UREA NITROGEN 9.5 mg/dL (7-18); CALCIUM 8.1 mg/dL (8.5-10.1)
[2020-09-01 08:25] LABS: CREATININE 0.7 mg/dL (0.55-1.3)
[2020-09-01 08:26] LABS: BILIRUBIN,TOTAL 0.6 mg/dL (0.2-1); TOT PROT 7.1 g/dl (6.4-8.2)
[2020-09-01] MEDS: PANTOPRAZOLE SODIUM 40 MG VIAL IVPUSH SCH (09:45)
[2020-09-01] MEDS: MORPHINE SULFATE 2 MG/ML VIAL IVPUSH PRN ×3 (12:11→21:24)
[2020-09-01] MEDS ORDERED: KCL 10 MEQ IVPB 10 MEQ/100 ML INFUS.BAG IVPB SCH (14:30)
[2020-09-01 16:10] LABS: BASO % 0.2 % (0-2.0); EOS % 3.6 % (0-4.5); HEMOGLOBIN 8.6 GM/dL (10.7-15.3); MCH 23.4 pg (25.7-33.7); MCHC 31.9 g/dl (32.0-36.0); MEAN CELL VOLUME 73.1 fl (80-96); MEAN PLT VOLUME 7.6 fl (7.5-11.1); NEUT % 58.2 % (42.8-82.8); PLATELET COUNT 205 10^3/uL (134-434); RBC 3.69 M/mm3 (3.60-5.2); RDW 18.7 % (11.6-15.6); WHITE BLOOD COUNT 4.1 K/mm3 (4.0-10.0)
[2020-09-01] MEDS: AMINO ACIDS 4.25%/D5W 1,000 ML IV SCH (17:09)
[2020-09-02] MEDS ORDERED: DEXTROSE 5%-WATER - 50 ML IVPB ONE ×3 (01:02→17:35)
[2020-09-02] MEDS ORDERED: PIPERACILLIN/TAZOBACTAM 3.375 GM VIAL IVPB ONE ×3 (01:02→17:35)
[2020-09-02] MEDS: PIPERACILLIN/TAZOB 3.375 GM 3.375 GM in DEXTROSE 5%-WATER - 50 ML IVPB SCH ×3 (01:29→17:39)
[2020-09-02] MEDS: AMINO ACIDS 4.25%/D5W 1,000 ML IV SCH ×2 (03:08→16:05)
[2020-09-02] MEDS: MORPHINE SULFATE 2 MG/ML VIAL IVPUSH PRN ×2 (06:08→14:02)
[2020-09-02] MEDS ORDERED: MORPHINE SULFATE 2 MG/ML VIAL IM ONE (07:16)
[2020-09-02] MEDS ORDERED: MORPHINE SULFATE 2 MG/ML VIAL IVPUSH ONE (08:10)
[2020-09-02 08:25] LABS: BASO % 0.4 % (0-2.0); EOS % 6.6 % (0-4.5); HEMATOCRIT 26.4 % (32.4-45.2); HEMOGLOBIN 8.5 GM/dL (10.7-15.3); LYMPH % 36.9 % (8-40); MCH 23.6 pg (25.7-33.7); MEAN CELL VOLUME 73.6 fl (80-96); MEAN PLT VOLUME 7.9 fl (7.5-11.1); MONO % 8.1 % (3.8-10.2); PLATELET COUNT 216 10^3/uL (134-434); RBC 3.59 M/mm3 (3.60-5.2); RDW 18.7 % (11.6-15.6); WHITE BLOOD COUNT 4.2 K/mm3 (4.0-10.0)
[2020-09-02 08:53] LABS: BLOOD UREA NITROGEN 11.8 mg/dL (7-18)
[2020-09-02 08:56] LABS: CREATININE 0.7 mg/dL (0.55-1.3)
[2020-09-02] MEDS: PANTOPRAZOLE SODIUM 40 MG VIAL IVPUSH SCH (09:14)
[2020-09-02 11:11] LABS: ANISOCYTOSIS 1+; MACROCYTOSIS 0; OVALOCYTE 1+; PLATELET ESTIMATE NORMAL
[2020-09-02] MEDS: KCL 10 MEQ IVPB 10 MEQ/100 ML INFUS.BAG IVPB SCH ×4 (13:45→18:35)
[2020-09-02] MEDS ORDERED: MIDAZOLAM HCL 2 MG/2 ML SINGLE DOSE VIAL IVPUSH ONE (17:00)
[2020-09-02] MEDS ORDERED: SODIUM CHLORIDE 500 ML IV SCH (17:00)
[2020-09-03] MEDS ORDERED: PIPERACILLIN/TAZOBACTAM 3.375 GM VIAL IVPB ONE ×3 (02:44→17:02)
[2020-09-03] MEDS ORDERED: DEXTROSE 5%-WATER - 50 ML IVPB ONE ×3 (02:44→17:02)
[2020-09-03] MEDS: PIPERACILLIN/TAZOB 3.375 GM 3.375 GM in DEXTROSE 5%-WATER - 50 ML IVPB SCH ×3 (03:15→17:42)
[2020-09-03] MEDS: MORPHINE SULFATE 2 MG/ML VIAL IVPUSH PRN ×3 (03:15→19:05)
[2020-09-03] MEDS: AMINO ACIDS 4.25%/D5W 1,000 ML IV SCH ×2 (03:16→13:40)
[2020-09-03 09:55] LABS: BASO % 0.4 % (0-2.0); EOS % 13.2 % (0-4.5); HEMATOCRIT 28.9 % (32.4-45.2); HEMOGLOBIN 9.3 GM/dL (10.7-15.3); LYMPH % 30.7 % (8-40); MCH 23.4 pg (25.7-33.7); MCHC 32.1 g/dl (32.0-36.0); MEAN CELL VOLUME 72.9 fl (80-96); MEAN PLT VOLUME 7.6 fl (7.5-11.1); MONO % 6.7 % (3.8-10.2); PLATELET COUNT 245 10^3/uL (134-434); RBC 3.96 M/mm3 (3.60-5.2); RDW 18.4 % (11.6-15.6); WHITE BLOOD COUNT 5.3 K/mm3 (4.0-10.0)
[2020-09-03] MEDS: PANTOPRAZOLE SODIUM 40 MG VIAL IVPUSH SCH (09:56)
[2020-09-03 10:10] LABS: CALCIUM 8.1 mg/dL (8.5-10.1)
[2020-09-03 10:11] LABS: BLOOD UREA NITROGEN 13.4 mg/dL (7-18)
[2020-09-03 10:14] LABS: CREATININE 0.6 mg/dL (0.55-1.3)
[2020-09-03 10:46] LABS: INR 1.23 (0.83-1.09)
[2020-09-03] MEDS ORDERED: PT OWN MED DRAWER 7, Y5N ONE (13:25)
[2020-09-03] MEDS: amLODIPine BESYLATE 5 MG TABLET (FP) PO SCH (13:40)
[2020-09-04] MEDS: MORPHINE SULFATE 2 MG/ML VIAL IVPUSH PRN ×3 (01:02→17:56)
[2020-09-04] MEDS ORDERED: DEXTROSE 5%-WATER - 50 ML IVPB ONE ×2 (03:06→08:57)
[2020-09-04] MEDS ORDERED: PIPERACILLIN/TAZOBACTAM 3.375 GM VIAL IVPB ONE ×3 (03:06→17:04)
[2020-09-04] MEDS: PIPERACILLIN/TAZOB 3.375 GM 3.375 GM in DEXTROSE 5%-WATER - 50 ML IVPB SCH ×3 (03:17→17:45)
[2020-09-04] MEDS: AMINO ACIDS 4.25%/D5W 1,000 ML IV SCH ×2 (03:19→14:50)
[2020-09-04] MEDS: amLODIPine BESYLATE 5 MG TABLET (FP) PO SCH (09:41)
[2020-09-04] MEDS: PANTOPRAZOLE SODIUM 40 MG VIAL IVPUSH SCH (09:41)
[2020-09-05] MEDS: MORPHINE SULFATE 2 MG/ML VIAL IVPUSH PRN ×4 (00:46→22:06)
[2020-09-05] MEDS ORDERED: PIPERACILLIN/TAZOBACTAM 3.375 GM VIAL IVPB ONE ×3 (01:20→16:53)
[2020-09-05] MEDS ORDERED: DEXTROSE 5%-WATER - 50 ML IVPB ONE ×3 (01:20→16:54)
[2020-09-05] MEDS: PIPERACILLIN/TAZOB 3.375 GM 3.375 GM in DEXTROSE 5%-WATER - 50 ML IVPB SCH ×3 (01:28→18:03)
[2020-09-05 09:08] LABS: BASO % 0.6 % (0-2.0); EOS % 14.2 % (0-4.5); HEMATOCRIT 31.7 % (32.4-45.2); HEMOGLOBIN 9.9 GM/dL (10.7-15.3); MCH 22.9 pg (25.7-33.7); MCHC 31.1 g/dl (32.0-36.0); MEAN CELL VOLUME 73.5 fl (80-96); MEAN PLT VOLUME 7.4 fl (7.5-11.1); MONO % 4.9 % (3.8-10.2); NEUT % 55.3 % (42.8-82.8); PLATELET COUNT 289 10^3/uL (134-434); RBC 4.31 M/mm3 (3.60-5.2); RDW 18.5 % (11.6-15.6); WHITE BLOOD COUNT 5.5 K/mm3 (4.0-10.0)
[2020-09-05] MEDS: PANTOPRAZOLE SODIUM 40 MG VIAL IVPUSH SCH (09:26)
[2020-09-05] MEDS: amLODIPine BESYLATE 5 MG TABLET (FP) PO SCH (09:26)
[2020-09-05] MEDS: AMINO ACIDS 4.25%/D5W 1,000 ML IV SCH ×3 (09:50→14:13)
[2020-09-05 10:03] LABS: BLOOD UREA NITROGEN 14.3 mg/dL (7-18)
[2020-09-05 10:04] LABS: CALCIUM 8.8 mg/dL (8.5-10.1)
[2020-09-05 10:05] LABS: ALBUMIN 2.6 g/dl (3.4-5.0); MAGNESIUM 1.8 mg/dL (1.8-2.4)
[2020-09-05 10:06] LABS: CREATININE 0.8 mg/dL (0.55-1.3)
[2020-09-05 10:08] LABS: TOT PROT 8.4 g/dl (6.4-8.2)
[2020-09-05 11:05] LABS: BILIRUBIN,TOTAL 0.4 mg/dL (0.2-1)
[2020-09-05] MEDS: KCL 10 MEQ IVPB 10 MEQ/100 ML INFUS.BAG IVPB SCH ×3 (12:26→15:37)
[2020-09-06] MEDS: AMINO ACIDS 4.25%/D5W 1,000 ML IV SCH ×2 (00:45→03:55)
[2020-09-06] MEDS ORDERED: PIPERACILLIN/TAZOBACTAM 3.375 GM VIAL IVPB ONE ×2 (01:21→08:50)
[2020-09-06] MEDS ORDERED: DEXTROSE 5%-WATER - 50 ML IVPB ONE ×2 (01:22→08:51)
[2020-09-06] MEDS: PIPERACILLIN/TAZOB 3.375 GM 3.375 GM in DEXTROSE 5%-WATER - 50 ML IVPB SCH ×2 (01:30→09:32)
[2020-09-06 08:47] LABS: BASO % 0.3 % (0-2.0); EOS % 11.8 % (0-4.5); HEMATOCRIT 29.6 % (32.4-45.2); HEMOGLOBIN 9.2 GM/dL (10.7-15.3); LYMPH % 28.9 % (8-40); MCH 22.9 pg (25.7-33.7); MCHC 31.2 g/dl (32.0-36.0); MEAN CELL VOLUME 73.5 fl (80-96); MEAN PLT VOLUME 7.6 fl (7.5-11.1); MONO % 7.3 % (3.8-10.2); NEUT % 51.7 % (42.8-82.8); PLATELET COUNT 319 10^3/uL (134-434); RBC 4.03 M/mm3 (3.60-5.2); RDW 18.1 % (11.6-15.6); WHITE BLOOD COUNT 6.3 K/mm3 (4.0-10.0)
[2020-09-06] MEDS: PANTOPRAZOLE SODIUM 40 MG VIAL IVPUSH SCH (09:32)
[2020-09-06] MEDS: amLODIPine BESYLATE 5 MG TABLET (FP) PO SCH (09:33)
[2020-09-06 09:34] LABS: CALCIUM 8.2 mg/dL (8.5-10.1)
[2020-09-06 09:38] LABS: CREATININE 0.7 mg/dL (0.55-1.3)
[2020-09-06] MEDS ORDERED: ZOLPIDEM TARTRATE 5 MG TABLET PO PRN (11:05)
[2020-09-06 13:59] VITALS: BP 158/83; PULSE 73; TEMP 98.2
== END 2020-09-06 18:25 | disposition home or self-care (01) | DRG 392 ==
LOC: JER 08:54 → JERBED 16:36 → J6S 08-31 00:14
PROVIDERS: ADMIT Hospitalist; ATTEND Internal Medicine
PROC: 0W9J30Z Drainage of Pelvic Cavity with Drainage Device, Percutaneous Approach (ICD-10-PCS; principal; 2020-09-02)
DX: K57.20 Diverticulitis of large intestine with perforation and abscess without bleeding (principal); I10 Essential (primary) hypertension; E78.5 Hyperlipidemia, unspecified
CPT/HCPCS: 36415; 49407; 71046-TC-FY; 74177-TC; 76705-TC; 80048; 80053; 81003; 83690; 83735; 85025; 85610; 85730; 86140; 86850; 86900; 86901; 87070; 87075; 87086; 87102; 87116; 87186; 87205; 87206; 87210; 93005; 93010; 99285-25; C9803; J0131; Q9967; U0003; U0005

== ENCOUNTER 2020-09-09 09:28 | Emergency (ER) | payer BC ==
[2020-09-09 09:49] VITALS: BP 148/85; PULSE 92; TEMP 98.1; BMI 29.7
== END 2020-09-09 11:15 | disposition home or self-care (01) ==
LOC: JER 09:28
DX: Z48.00 Encounter for change or removal of nonsurgical wound dressing (principal)
CPT/HCPCS: 99281-25

== ENCOUNTER 2021-01-10 15:12 | Inpatient (IN) | payer BC, OTHER ==
[2021-01-10 15:32] VITALS: BMI 25.2
[2021-01-10] MEDS ORDERED: SODIUM PHOSPHATE/NA BIPHOS 133 ML ENEMA PR ONE (16:44)
[2021-01-10] MEDS ORDERED: POLYETHYLENE GLYCOL (HEALTHYLAX) 3350 17 GM PACKET ONE (17:07)
[2021-01-10] MEDS: POLYETHYLENE GLYCOL (HEALTHYLAX) 3350 17 GM PACKET PO SCH (17:12)
[2021-01-10 17:20] LABS: INR 1.08 (0.83-1.09); PROTHROMBIN TIME (PATIENT) 12.6 SEC (9.7-13.0)
[2021-01-10 17:36] LABS: HEMATOCRIT 35.3 % (32.4-45.2); HEMOGLOBIN 11.4 GM/dL (10.7-15.3); MCHC 32.3 g/dl (32.0-36.0); MEAN CELL VOLUME 77.3 fl (80-96); MEAN PLT VOLUME 7.9 fl (7.5-11.1); PLATELET COUNT 246 10^3/uL (134-434); RBC 4.57 M/mm3 (3.60-5.2); RDW 16.4 % (11.6-15.6); WHITE BLOOD COUNT 4.9 K/mm3 (4.0-10.0)
[2021-01-10 17:43] LABS: CHLORIDE 100 mmol/L (98-107); SODIUM 134 mmol/L (136-145)
[2021-01-10 17:45] LABS: ALBUMIN 2.6 g/dl (3.4-5.0); ANION GAP 8 MMOL/L (8-16); BLOOD UREA NITROGEN 15.6 mg/dL (7-18); CALCIUM 10.1 mg/dL (8.5-10.1); CO2 27 mmol/L (21-32)
[2021-01-10 17:46] LABS: GLUCOSE,RANDOM 83 mg/dL (74-106)
[2021-01-10 17:48] LABS: SGOT/AST 52 U/L (15-37); SGPT/ALT 20 U/L (13-61)
[2021-01-10 17:49] LABS: PHOSPHOROUS 3.4 mg/dL (2.5-4.9)
[2021-01-10 17:50] LABS: BILIRUBIN,TOTAL 0.4 mg/dL (0.2-1); TOT PROT 8.9 g/dl (6.4-8.2)
[2021-01-10 17:51] LABS: ALK PHOS 74 U/L (45-117)
[2021-01-10 17:58] LABS: ANISOCYTOSIS 2+; MACROCYTOSIS 0; PLATELET ESTIMATE NORMAL
[2021-01-10] MEDS: SENNOSIDES/DOCUSATE COMBO (SENNA PLUS) TABLET (UD) PO SCH (18:37)
[2021-01-10] MEDS ORDERED: KETOROLAC TROMETHAMINE 30 MG/1 ML VIAL IVPUSH ONE (21:05)
[2021-01-10] MEDS ORDERED: KETOROLAC TROMETHAMINE 30 MG/1 ML VIAL ONE (21:37)
[2021-01-10 22:02] LABS: CALCIUM 9.8 mg/dL (8.5-10.1)
[2021-01-10] MEDS ORDERED: morphine SULFATE 4 MG/ML VIAL ONE (23:18)
[2021-01-10] MEDS ORDERED: morphine SULFATE 4 MG/ML VIAL IVPUSH ONE (23:19)
[2021-01-11] MEDS ORDERED: ACETAMINOPHEN 1000 MG/100 ML VIAL IVPB ONE (00:53)
[2021-01-11] MEDS ORDERED: MELATONIN 5 MG TABLETS PO ONE (00:55)
[2021-01-11] MEDS ORDERED: morphine SULFATE 4 MG/ML VIAL IVPUSH ONE (02:10)
[2021-01-11] MEDS: SENNOSIDES/DOCUSATE COMBO (SENNA PLUS) TABLET (UD) PO SCH ×2 (02:41→22:04)
[2021-01-11 08:40] LABS: BASO % 0.8 % (0-2.0); EOS % 6.4 % (0-4.5); HEMATOCRIT 32.6 % (32.4-45.2); HEMOGLOBIN 10.7 GM/dL (10.7-15.3); LYMPH % 26.3 % (8-40); MCH 25.5 pg (25.7-33.7); MCHC 32.9 g/dl (32.0-36.0); MEAN CELL VOLUME 77.3 fl (80-96); MEAN PLT VOLUME 8.2 fl (7.5-11.1); MONO % 8.2 % (3.8-10.2); NEUT % 58.3 % (42.8-82.8); PLATELET COUNT 242 10^3/uL (134-434); RBC 4.22 M/mm3 (3.60-5.2); RDW 16.8 % (11.6-15.6); WHITE BLOOD COUNT 5.5 K/mm3 (4.0-10.0)
[2021-01-11 08:59] LABS: CALCIUM 9.7 mg/dL (8.5-10.1)
[2021-01-11 09:00] LABS: ALBUMIN 2.4 g/dl (3.4-5.0); MAGNESIUM 1.8 mg/dL (1.8-2.4)
[2021-01-11 09:03] LABS: CREATININE 0.9 mg/dL (0.55-1.3)
[2021-01-11 09:04] LABS: BILIRUBIN,TOTAL 0.4 mg/dL (0.2-1)
[2021-01-11] MEDS ORDERED: QUINAPRIL HCL 20 MG TABLET ONE (09:26)
[2021-01-11] MEDS: HEPARIN NA (PORCINE) 5,000 UNITS/ML 1ML VIAL SQ SCH ×2 (09:30→22:05)
[2021-01-11] MEDS: QUINAPRIL HCL 40 MG TABLET PO SCH (09:30)
[2021-01-11] MEDS: POLYETHYLENE GLYCOL (HEALTHYLAX) 3350 17 GM PACKET PO SCH (09:30)
[2021-01-11] MEDS ORDERED: POLYETHYLENE GLYCOL 3350 119 GM BTL PO SCH (10:00)
[2021-01-11] MEDS ORDERED: ONDANSETRON 4 MG/2 ML VIAL IVPUSH PRN (11:08)
[2021-01-11] MEDS ORDERED: SODIUM PHOSPHATE/NA BIPHOS 133 ML ENEMA PR ONE (11:08)
[2021-01-11 16:30] LABS: URINE APPEARANCE CLEAR; URINE BILIRUBIN NEGATIVE (NEGATIVE); URINE COLOR YELLOW; URINE GLUCOSE (UA) NEGATIVE (NEGATIVE); URINE KETONE NEGATIVE (NEGATIVE); URINE LEUK ESTERASE NEGATIVE (NEGATIVE); URINE NITRITE NEGATIVE (NEGATIVE); URINE PROTEIN NEGATIVE (NEGATIVE); URINE UROBILINOGEN 0.2 mg/dL (0.2-1.0)
[2021-01-11] MEDS: MELATONIN 5 MG TABLETS PO SCH (22:04)
[2021-01-11] MEDS: ROSUVASTATIN CA 10 MG TABLET (FP) PO SCH (22:04)
[2021-01-11] MEDS: GABAPENTIN 300 MG CAPSULE PO SCH (22:04)
[2021-01-12] MEDS ORDERED: QUINAPRIL HCL 20 MG TABLET ONE (09:02)
[2021-01-12] MEDS: GABAPENTIN 300 MG CAPSULE PO SCH ×2 (09:12→22:34)
[2021-01-12] MEDS: HEPARIN NA (PORCINE) 5,000 UNITS/ML 1ML VIAL SQ SCH ×2 (09:12→22:35)
[2021-01-12] MEDS: QUINAPRIL HCL 40 MG TABLET PO SCH (09:13)
[2021-01-12] MEDS: POLYETHYLENE GLYCOL (HEALTHYLAX) 3350 17 GM PACKET PO SCH ×2 (09:14→22:36)
[2021-01-12] MEDS: ROSUVASTATIN CA 10 MG TABLET (FP) PO SCH (22:34)
[2021-01-12] MEDS: SENNOSIDES/DOCUSATE COMBO (SENNA PLUS) TABLET (UD) PO SCH (22:35)
[2021-01-12] MEDS: MELATONIN 5 MG TABLETS PO SCH (22:35)
[2021-01-13] MEDS ORDERED: QUINAPRIL HCL 20 MG TABLET ONE (11:11)
[2021-01-13] MEDS: QUINAPRIL HCL 40 MG TABLET PO SCH (11:16)
[2021-01-13] MEDS: GABAPENTIN 300 MG CAPSULE PO SCH ×2 (11:17→21:43)
[2021-01-13] MEDS: HEPARIN NA (PORCINE) 5,000 UNITS/ML 1ML VIAL SQ SCH ×2 (11:17→21:44)
[2021-01-13] MEDS: POLYETHYLENE GLYCOL (HEALTHYLAX) 3350 17 GM PACKET PO SCH ×2 (11:17→21:51)
[2021-01-13] MEDS: SENNOSIDES/DOCUSATE COMBO (SENNA PLUS) TABLET (UD) PO SCH (21:43)
[2021-01-13] MEDS: ROSUVASTATIN CA 10 MG TABLET (FP) PO SCH (21:44)
[2021-01-13] MEDS: MELATONIN 5 MG TABLETS PO SCH (21:44)
[2021-01-14] MEDS ORDERED: QUINAPRIL HCL 20 MG TABLET ONE (11:01)
[2021-01-14] MEDS: QUINAPRIL HCL 40 MG TABLET PO SCH (11:02)
[2021-01-14] MEDS: POLYETHYLENE GLYCOL (HEALTHYLAX) 3350 17 GM PACKET PO SCH ×2 (11:03→21:58)
[2021-01-14] MEDS: GABAPENTIN 300 MG CAPSULE PO SCH ×2 (11:03→21:58)
[2021-01-14] MEDS: HEPARIN NA (PORCINE) 5,000 UNITS/ML 1ML VIAL SQ SCH ×2 (11:03→21:58)
[2021-01-14] MEDS: MELATONIN 5 MG TABLETS PO SCH (21:57)
[2021-01-14] MEDS: ROSUVASTATIN CA 10 MG TABLET (FP) PO SCH (21:58)
[2021-01-14] MEDS: SENNOSIDES/DOCUSATE COMBO (SENNA PLUS) TABLET (UD) PO SCH (21:58)
[2021-01-15] MEDS ORDERED: QUINAPRIL HCL 20 MG TABLET ONE (10:11)
[2021-01-15] MEDS: QUINAPRIL HCL 40 MG TABLET PO SCH (10:17)
[2021-01-15] MEDS: HEPARIN NA (PORCINE) 5,000 UNITS/ML 1ML VIAL SQ SCH ×2 (10:17→21:21)
[2021-01-15] MEDS: GABAPENTIN 300 MG CAPSULE PO SCH ×2 (10:17→21:20)
[2021-01-15] MEDS: POLYETHYLENE GLYCOL (HEALTHYLAX) 3350 17 GM PACKET PO SCH ×3 (10:17→21:30)
[2021-01-15] MEDS: MELATONIN 5 MG TABLETS PO SCH (21:20)
[2021-01-15] MEDS: SENNOSIDES/DOCUSATE COMBO (SENNA PLUS) TABLET (UD) PO SCH (21:20)
[2021-01-15] MEDS: ROSUVASTATIN CA 10 MG TABLET (FP) PO SCH (21:21)
[2021-01-16] MEDS ORDERED: QUINAPRIL HCL 20 MG TABLET ONE (10:00)
[2021-01-16] MEDS: POLYETHYLENE GLYCOL (HEALTHYLAX) 3350 17 GM PACKET PO SCH ×2 (10:14→22:12)
[2021-01-16] MEDS: HEPARIN NA (PORCINE) 5,000 UNITS/ML 1ML VIAL SQ SCH ×2 (10:14→22:10)
[2021-01-16] MEDS: GABAPENTIN 300 MG CAPSULE PO SCH ×2 (10:15→22:09)
[2021-01-16] MEDS: QUINAPRIL HCL 40 MG TABLET PO SCH (10:15)
[2021-01-16] MEDS: ROSUVASTATIN CA 10 MG TABLET (FP) PO SCH (22:09)
[2021-01-16] MEDS: MELATONIN 5 MG TABLETS PO SCH (22:10)
[2021-01-16] MEDS: SENNOSIDES/DOCUSATE COMBO (SENNA PLUS) TABLET (UD) PO SCH (22:10)
[2021-01-17] MEDS ORDERED: QUINAPRIL HCL 20 MG TABLET ONE (09:21)
[2021-01-17] MEDS: POLYETHYLENE GLYCOL (HEALTHYLAX) 3350 17 GM PACKET PO SCH ×2 (09:31→21:13)
[2021-01-17] MEDS: QUINAPRIL HCL 40 MG TABLET PO SCH (09:31)
[2021-01-17] MEDS: GABAPENTIN 300 MG CAPSULE PO SCH ×2 (09:32→21:13)
[2021-01-17] MEDS: HEPARIN NA (PORCINE) 5,000 UNITS/ML 1ML VIAL SQ SCH ×2 (09:49→21:12)
[2021-01-17] MEDS ORDERED: PT OWN MED DRAWER 7, Y5N ONE (20:59)
[2021-01-17] MEDS: MELATONIN 5 MG TABLETS PO SCH (21:12)
[2021-01-17] MEDS: ROSUVASTATIN CA 10 MG TABLET (FP) PO SCH (21:12)
[2021-01-17] MEDS: SENNOSIDES/DOCUSATE COMBO (SENNA PLUS) TABLET (UD) PO SCH (21:13)
[2021-01-18] MEDS ORDERED: QUINAPRIL HCL 20 MG TABLET ONE (09:03)
[2021-01-18] MEDS: POLYETHYLENE GLYCOL (HEALTHYLAX) 3350 17 GM PACKET PO SCH ×2 (09:22→21:47)
[2021-01-18] MEDS: GABAPENTIN 300 MG CAPSULE PO SCH ×2 (09:23→21:36)
[2021-01-18] MEDS: QUINAPRIL HCL 40 MG TABLET PO SCH (09:24)
[2021-01-18] MEDS: HEPARIN NA (PORCINE) 5,000 UNITS/ML 1ML VIAL SQ SCH ×2 (14:38→21:36)
[2021-01-18] MEDS: ROSUVASTATIN CA 10 MG TABLET (FP) PO SCH (21:36)
[2021-01-18] MEDS: MELATONIN 5 MG TABLETS PO SCH (21:36)
[2021-01-18] MEDS: SENNOSIDES/DOCUSATE COMBO (SENNA PLUS) TABLET (UD) PO SCH (21:36)
[2021-01-19] MEDS ORDERED: QUINAPRIL HCL 20 MG TABLET ONE (09:00)
[2021-01-19] MEDS: HEPARIN NA (PORCINE) 5,000 UNITS/ML 1ML VIAL SQ SCH ×2 (10:20→22:39)
[2021-01-19] MEDS: POLYETHYLENE GLYCOL (HEALTHYLAX) 3350 17 GM PACKET PO SCH ×2 (10:20→22:40)
[2021-01-19] MEDS: QUINAPRIL HCL 40 MG TABLET PO SCH (10:20)
[2021-01-19] MEDS: GABAPENTIN 300 MG CAPSULE PO SCH ×2 (10:21→22:38)
[2021-01-19] MEDS: SENNOSIDES/DOCUSATE COMBO (SENNA PLUS) TABLET (UD) PO SCH (22:38)
[2021-01-19] MEDS: ROSUVASTATIN CA 10 MG TABLET (FP) PO SCH (22:38)
[2021-01-19] MEDS: MELATONIN 5 MG TABLETS PO SCH (22:39)
[2021-01-20] MEDS ORDERED: QUINAPRIL HCL 20 MG TABLET ONE (09:30)
[2021-01-20] MEDS: POLYETHYLENE GLYCOL (HEALTHYLAX) 3350 17 GM PACKET PO SCH (10:24)
[2021-01-20] MEDS: HEPARIN NA (PORCINE) 5,000 UNITS/ML 1ML VIAL SQ SCH (10:25)
[2021-01-20] MEDS: GABAPENTIN 300 MG CAPSULE PO SCH (10:26)
[2021-01-20] MEDS: QUINAPRIL HCL 40 MG TABLET PO SCH (10:26)
[2021-01-20] MEDS ORDERED: PT OWN MED DRAWER 7, Y5N ONE (10:54)
[2021-01-20 15:05] VITALS: BP 133/86; PULSE 78; TEMP 98.1
== END 2021-01-20 19:46 | disposition home health service (06) | DRG 552 ==
LOC: JER 15:12 → JERBED 20:12 → J7W 23:29
PROVIDERS: ADMIT Internal Medicine; ATTEND Internal Medicine
DX: M48.062 Spinal stenosis, lumbar region with neurogenic claudication (principal); M51.36 Other intervertebral disc degeneration, lumbar region; E78.5 Hyperlipidemia, unspecified; D47.2 Monoclonal gammopathy; M54.50 Low back pain, unspecified; G62.9 Polyneuropathy, unspecified; M43.16 Spondylolisthesis, lumbar region; M54.16 Radiculopathy, lumbar region; K59.03 Drug induced constipation; I11.0 Hypertensive heart disease with heart failure; I50.9 Heart failure, unspecified; Z98.84 Bariatric surgery status; T50.995A Adverse effect of other drugs, medicaments and biological substances, initial encounter
CPT/HCPCS: 36415; 70450-TC; 71045-TC-FY; 72131-TC; 80048; 80053; 81003; 82306; 82550; 82607; 83735; 84100; 84155; 84165; 84436; 84439; 84443; 84484; 85025; 85610; 85730; 86780; 86850; 86900; 86901; 87086; 93005; 93010; 97116-GP; 97162-GP; 99285-25; C9803; J0131; J1644; U0003; U0005